=== PATIENT | male | born 1980 | race Caucasian/White ===

== ENCOUNTER 2017-06-13 22:41 | Emergency (ER) | payer MEDICARE, MEDICAID ==
[2017-06-13] MEDS ORDERED: NS 0.9% 1000 ML* 1,000 ML IV ONE (23:13)
[2017-06-13] MEDS ORDERED: Ketorolac INJ* 30 MG/ML 1 ML VIAL IV PUSH ONE (23:14)
[2017-06-13 23:33] LABS: ABS Basophils 0 10^3/ul (0-0.2); ABS Eosinophils 0.2 10^3/ul (0-0.6); ABS Monocytes 0.5 10^3/ul (0-0.8); ABS Neutrophils 4.8 10^3/ul (1.5-7.7); ABS Nucleated RBC 0 10^3/ul; Eosinophil % 2.5 % (0-6); Hematocrit 42 % (42-52); Hemoglobin 14.3 g/dl (14.0-18.0); Lymphocyte % 14.8 % (25-47); Mean Corpuscular HGB Conc 34 g/dl (31-36); Mean Corpuscular Hemoglobin 30 pg (27-31); Mean Corpuscular Volume 87 fL (80-94); Mean Platelet Volume 8 um3 (7.4-10.4); Nucleated Red Blood Cells % 0.2; Platelet Count 296 10^3/ul (150-450); Red Cell Distribution Width 13 % (10.5-15); White Blood Count 6.5 10^3/ul (3.5-10.8)
[2017-06-13 23:46] LABS: EGFR Non-African American 76.5 (>60)
[2017-06-14] MEDS ORDERED: Iohexol 300* (CONTRAST) 10 ML SDV IV ONE (01:31)
[2017-06-14 01:45] LABS: Urine Appearance Cloudy; Urine Blood Negative (Negative); Urine Color Amber; Urine Ketones Negative (Negative); Urine Protein 1+(30 mg/dL) (Negative); Urine Urobilinogen Negative (Negative)
--- NOTE | 2017-06-14 04:54 | ED ---
Gilberto Dior Angela, scribed for Sulaiman Bryant MD on 06/13/17 at 2328 . Adult Trauma - HPI Summary HPI Summary: This pt is a 37 y/o male presenting to [facility] via EMS from [facility] c/o right sided ribcage pain s/p unwitnessed fall today. 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 Pt was showering today when he sustained a fall. He denies headache. HPI is limited due to deafness. - History of Current Complaint Chief Complaint: EDChestWallPain Stated Complaint: FALL/RIB PAIN Time Seen by Provider: 06/13/17 22:54 Hx Obtained From: Patient Mechanism of Injury: Fall Ambulatory at the Scene: Yes Onset/Duration: Started Hours Ago, Traumatic, Still Present Onset of Pain: Immediate Current Severity: Moderate Pain Intensity: 5 Pain Scale Used: 0-10 Numeric Location: Other - right sided ribs Aggravating Factor(s): Movement, Palpation Alleviating Factor(s): Rest Associated Signs & Symptoms: Positive: Chest Pain - chest wall pain. Negative: Loss of Consciousness - Additional Pertinent History Primary Care Physician: [id number] - Allergy/Home Medications Allergies/Adverse Reactions: Allergies Allergy/AdvReac Type Severity Reaction Status Date / Time No Known Allergies Allergy Verified 06/13/17 22:51 PMH/Surg Hx/FS Hx/Imm Hx Endocrine/Hematology History: Denies: Hx Diabetes Cardiovascular History: Denies: Hx Congestive Heart Failure, Hx Hypertension - NOT ON MEDS,SOMETIMES AT OFFICE VISITS, Hx Pacemaker/ICD Respiratory History: Denies: Hx Asthma GI History: Reports: Other GI Disorders - enlarged gallbladder, non-surgical History: Denies: Hx Dialysis, Hx Renal Disease Musculoskeletal History: Reports: Other Musculoskeletal History - right arm Sensory History: Reports: Hx Cataracts, Hx Deafness, Hx Hearing Aid - L side Opthamlomology History: Reports: Hx Cataracts Neurological History: Reports: Hx Migraine, Other Neuro Impairments/Disorders - RECENT EEG,RECURRENT DIZZINESS. 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 Father: arthritis and ulcerative colitis. - Social History Alcohol Use: None Hx Substance Use: No Substance Use Type: Reports: None Hx Tobacco Use: No Smoking Status (MU): Unknown if Ever Smoked Review of Systems Negative: Fever Eyes: Negative ENT: Negative Musculoskeletal: Other - right sided rib cage pain Negative: Headache All Other Systems Reviewed And Are Negative: Yes Physical Exam - Summary Physical Exam Summary: VITAL SIGNS: Reviewed. GENERAL: Patient is a well-developed and nourished male who is lying comfortable in the stretcher. Patient is not in any acute respiratory distress. HEAD AND FACE: No signs of trauma. No ecchymosis, hematomas or skull depressions. No sinus tenderness. EYES: PERRLA, EOMI x 2, No injected conjunctiva, no nystagmus. EARS: Hearing grossly intact. Ear canals and tympanic membranes are within normal limits. MOUTH: Oropharynx within normal limits. NECK: Supple, trachea is midline, no adenopathy, no JVD, no carotid bruit, no c- spine tenderness, neck with full ROM. CHEST: Symmetric, tenderness on the right upper chest wall. LUNGS: Clear to auscultation bilaterally. No wheezing or crackles. CVS: Regular rate and rhythm, S1 and S2 present, no murmurs or gallops appreciated. ABDOMEN: Soft. Tenderness on the right upper quadrant. No signs of distention. No rebound no guarding, and no masses palpated. Bowel sounds are normal. EXTREMITIES: FROM in all major joints, no edema, no cyanosis or clubbing. NEURO: Alert and oriented x 3. No acute neurological deficits. Speech is normal and follows commands. SKIN: Dry and warm Triage Information Reviewed: Yes Vital Signs On Initial Exam: Initial Vitals Temp Pulse Resp BP Pulse Ox 98.6 F 81 16 131/80 94 06/13/17 22:45 06/13/17 22:45 06/13/17 22:45 06/13/17 22:45 06/13/17 22:45 Vital Signs Reviewed: Yes - Lucas Coma Scale Best Eye Response: 4 - Spontaneous Best Motor Response: 6 - Obeys Commands Best Verbal Response: 5 - Oriented Coma Scale Total: 15 Diagnostics - Vital Signs Vital Signs Temp Pulse Resp BP Pulse Ox 06/13/17 22:51 81 94 06/13/17 22:49 131/80 06/13/17 22:45 98.6 F 81 16 131/80 94 - Laboratory Result Diagrams: 06/13/17 23:22 06/13/17 23:22 Lab Statement: Any lab studies that have been ordered have been reviewed, and results considered in the medical decision making process. - CT chest/abdomen/pelvis CT CT Interpretation: No Acute Changes - IMPRESSION: No evidence of acute traumatic pathology in the chest, abdomen, or pelvis. Dr. Bryant has reviewed this radiology report. CT Interpretation Completed By: Radiologist Brain CT CT Interpretation: No Acute Changes - IMPRESSION: Extensive stable intracranial and extracranial abnormalities likely represent intracranial tubers and the sequela of prior surgery and radiotherapy. Persistent right occipital edema could represent residual mass which may involve enhanced MRI. No hemorrhage or definite acute pathology. Dr. Bryant has reviewed this radiology report. CT Interpretation Completed By: Radiologist Adult Trauma Course/Dx - Course Course Of Treatment: Pt is a 37 y/o male who presents with right sided ribcage pain s/p unwitnessed fall today. In the ED course, the pt was given IV fluids and Toradol. CT chest/abdomen/pelvis is negative. 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 Persistent right occipital edema could represent residual mass which may involve enhanced MRI. No hemorrhage or definite acute pathology. Pt will be discharged home with follow up from his PCP. - Diagnoses Provider Diagnoses: Chest wall pain Discharge - Discharge Plan Condition: Stable Disposition: HOME Patient Education Materials: Chest Wall Pain (ED) Referrals: Maxwell Ball MD [Primary Care Provider] - 3 Days Additional Instructions: Please follow up with your primary care provider. RETURN TO EMERGENCY DEPARTMENT FOR ANY NEW OR WORSENING SYMPTOMS. The documentation as recorded by the Gilberto galicia Angela accurately reflects the service I personally performed and the decisions made by Annette hill Abdul, MD.
[2017-06-14 05:04] VITALS: BP 131/75
--- NOTE | 2017-06-14 08:18 | RAD ---
INDICATION: Fall in a patient unable to provide history. COMPARISON: Most recent CT of the brain is dated February 22, 2017 TECHNIQUE: Contiguous axial sections of the brain were obtained from the skull base to the vertex without contrast. FINDINGS: Unless otherwise specified comparisons below reference the February 22, 2017 CT of the brain (there is mild symmetrical involutional change of the bilateral ventricles similar in appearance to the previous CT. There is coarse calcification seen at the bilateral basal ganglia and distributed symmetrically at the bilateral frontal lobes and involves the right greater than left medial temporal lobes. At the right occipital lobe there is a stable hyperattenuating focus measuring 12 mm with surrounding hypoattenuation in the underlying white matter. This is similar to the previous CT of the brain. There is no CT evidence of acute intracranial hemorrhage. There is no evidence for intracranial hemorrhage. There is asymmetric thickening of the right temporal and occipital calvarium. Elsewhere there is a groundglass appearance of the visualized bony structures including the maxilla and sphenoid bones. Again seen is surgical material at the inner table at the midline occipital bone. There are frothy secretions in the nasopharynx. The maxillary sinuses are hypoplastic. The sphenoid sinuses appear to be absent.. There is opacification of the right mastoid air cells and near complete opacification of the left mastoid air cells similar to the prior CT the brain. IMPRESSION: 1. Extensive chronic and postsurgical changes as described above including calcified intracranial tubers. 2. No CT evidence of acute intracranial hemorrhage or acute calvarial injury.
--- NOTE | 2017-06-14 08:19 | RAD ---
HISTORY: Fall, history of brain tumor, chest pain COMPARISONS: CT of the abdomen and pelvis dated November 21, 2011 TECHNIQUE: Multiple contiguous axial CT scans were obtained of the chest, abdomen, and pelvis. Intravenous contrast was administered; however, there is essentially no contrast opacification on the current examination.. Coronal and sagittal multiplanar reformations are submitted for review.. Oral contrast was not administered. FINDINGS: The study is limited by the essential lack of intravenous contrast. This limits evaluation of the solid organs and vasculature. Evaluation is limited by patient breathing motion artifact. CHEST NECK AND THYROID: The lower neck and thyroid are unremarkable. CHEST WALL: There is no lower cervical, axillary, or supraclavicular lymphadenopathy by size criteria. HEART AND PERICARDIUM: The heart is unremarkable. AORTA AND PULMONARY VASCULATURE: The aorta and pulmonary vasculature are normal. MEDIASTINUM: There is no mediastinal lymphadenopathy by size criteria. KAMILLA: There is no hilar lymphadenopathy by size criteria. AIRWAY AND ESOPHAGUS: The airway is unremarkable, without endobronchial filling defect. The esophagus is grossly normal. LUNG PARENCHYMA: The lungs are clear. PLEURA: No pleural abnormalities are noted. BONES AND SOFT TISSUES: No bone or soft tissue abnormalities are noted. ABDOMEN/PELVIS: LIVER: The liver is normal in shape, size, contour, and attenuation. BILE DUCTS: There is no intrahepatic or extrahepatic biliary dilatation. GALLBLADDER: The gallbladder is incompletely distended, but is grossly normal. PANCREAS: The pancreas is normal, without mass or ductal dilatation. SPLEEN: Normal in size and appearance. UPPER GI TRACT: Evaluation of the gastrointestinal tract is limited by incomplete gastric distention. Surgical clips are noted at the GE junction. SMALL BOWEL & MESENTERY: The small bowel is normal in contour, course, and caliber. There is no obstruction or dilatation. COLON: The colon is normal in contour, course, caliber. There is no pericolonic inflammatory change. ADRENALS: There is a stable 1 cm right adrenal nodule. The stability is consistent with benign nodularity. KIDNEYS: Contrast is noted within the renal collecting system. There is no appreciable hydronephrosis. BLADDER: The bladder is incompletely distended but is grossly normal. PELVIC ORGANS: The prostate gland is normal. The seminal vesicles are symmetric. AORTA: The aorta is normal. IVC: Unremarkable LYMPH NODES: There is no lymphadenopathy by size criteria. ABDOMINAL WALL: There is no evidence for abdominal wall hernia. BONES AND SOFT TISSUES: Unremarkable OTHER: None IMPRESSION: 1. EVALUATION IS LIMITED BY SUBOPTIMAL CONTRAST OPACIFICATION. THIS IS ESSENTIALLY A NONCONTRAST STUDY. 2. NO ACUTE CT PATHOLOGY OF THE VISUALIZED CHEST, ABDOMEN, OR PELVIS.
== END 2017-06-14 04:55 | disposition home or self-care (01) ==
LOC: ED 22:41
DX: R07.89 Other chest pain (principal); Z86.011 Personal history of benign neoplasm of the brain; Z85.850 Personal history of malignant neoplasm of thyroid
CPT/HCPCS: 36415; 70450; 71260; 74177; 80053; 81003; 81015; 85025; 87086; 96361; 96374; 99284; J1885

== ENCOUNTER 2017-06-18 06:17 | Emergency (ER) | payer MEDICARE, MEDICAID ==
--- NOTE | 2017-06-18 07:11 | ED ---
Ciro Dior Nikita, scribed for Remy Lovell MD on 06/18/17 at 0644 . Throat Pain/Nasal Congestion - HPI Summary HPI Summary: LEVEL 5 CAVEAT DUE TO MR This patient is a 37 year old M BIBA to ED with a chief complaint of blood in the lower conjunctiva bilaterally since awaking this morning. The caregiver rates the pain 5/10 in severity. Symptoms aggravated by nothing. Symptoms alleviated by nothing. The patient reports R-sided abdominal pain. - History of Current Complaint Chief Complaint: EDEyeProblem Hx Obtained From: Family/E Marketing Specialist Hx From Patient Unobtainable Due To: Other - LEVEL 5 CAVEAT DUE TO MR Onset/Duration: Lasting Minutes, Still Present Severity: Moderate - Allergies/Home Medications Allergies/Adverse Reactions: Allergies Allergy/AdvReac Type Severity Reaction Status Date / Time No Known Allergies Allergy Verified 06/18/17 06:20 PMH/Surg Hx/FS Hx/Imm Hx Endocrine/Hematology History: Denies: Hx Diabetes Cardiovascular History: Denies: Hx Congestive Heart Failure, Hx Hypertension - NOT ON MEDS,SOMETIMES AT OFFICE VISITS, Hx Pacemaker/ICD Respiratory History: Denies: Hx Asthma GI History: Reports: Other GI Disorders - enlarged gallbladder, non-surgical History: Denies: Hx Dialysis, Hx Renal Disease Musculoskeletal History: Reports: Other Musculoskeletal History - right arm Sensory History: Reports: Hx Cataracts, Hx Deafness, Hx Hearing Aid - L side Opthamlomology History: Reports: Hx Cataracts Neurological History: Reports: Hx Migraine, Other Neuro Impairments/Disorders - RECENT EEG,RECURRENT DIZZINESS. 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 Father: arthritis and ulcerative colitis. - Social History Alcohol Use: None Hx Substance Use: No Substance Use Type: Reports: None Hx Tobacco Use: No Smoking Status (MU): Never Smoked Tobacco Review of Systems Positive: Other - blood in the lower conjunctiva bilaterally Positive: Abdominal Pain - R-sided All Other Systems Reviewed And Are Negative: No - Comments Additional Review of Systems Comments: LEVEL 5 CAVEAT DUE TO MR Physical Exam - Summary Physical Exam Summary: Appearance: Well appearing, no pain distress Skin: warm, dry, reflects adequate perfusion Head/face: normal Eyes: EOMI, KINSEY ENT: normal, moist mucous membranes Neck: supple, non-tender, trach scar, surgical scar on the back of the neck Respiratory: CTA, breath sounds present, no crackles Cardiovascular: RRR, pulses symmetrical Abdomen: soft, RUQ pain Bowel: present Musculoskeletal: strength/ROM intact, R lower chest wall pain Neuro: normal, sensory motor intact, A&Ox3 Triage Information Reviewed: Yes Vital Signs On Initial Exam: Initial Vitals Temp Pulse Resp BP Pulse Ox 98.2 F 85 18 153/78 94 06/18/17 06:18 18 06:18 18 06:18 06/18/17 06:18 06/18/17 06:18 Vital Signs Reviewed: Yes Completion Of Physical Exam Limited Due To: Level 5 - DUE TO MR Diagnostics - Vital Signs Vital Signs Temp Pulse Resp BP Pulse Ox 06/18/17 06:18 98.2 F 85 18 153/78 94 - Laboratory Lab Statement: Any lab studies that have been ordered have been reviewed, and results considered in the medical decision making process. EENT Course/Dx - Course Course Of Treatment: RUQ pain with recent CT for same. Pending GB US. Signed out to Dr Wells at 7am. Tyree JEFFREY. No blood thinners. Appears to be related to his grunting. - Differential Diagnoses Differential Diagnoses: Other - viral illness, non-specific pain, cholecystitis , chronic abdominal pain, blood disorder - Diagnoses Provider Diagnoses: RUQ pain, Subconjunctival hemorrhage of both eyes, History of brain tumor Discharge - Discharge Plan Condition: Fair Disposition: OTHER Discharge Disposition Comment: This patient will be signed out to Dr. Wells, pending dispo, awaiting US. Referrals: Maxwell Ball MD [Primary Care Provider] - The documentation as recorded by the Ciro galicia Nikita accurately reflects the service I personally performed and the decisions made by me, Remy Lovell MD.
[2017-06-18 07:30] LABS: ABS Basophils 0 10^3/ul (0-0.2); ABS Eosinophils 0.3 10^3/ul (0-0.6); ABS Monocytes 0.5 10^3/ul (0-0.8); ABS Neutrophils 2.9 10^3/ul (1.5-7.7); ABS Nucleated RBC 0 10^3/ul; Eosinophil % 5.6 % (0-6); Hematocrit 42 % (42-52); Hemoglobin 14.2 g/dl (14.0-18.0); Lymphocyte % 21.8 % (25-47); Mean Corpuscular HGB Conc 34 g/dl (31-36); Mean Corpuscular Hemoglobin 29 pg (27-31); Mean Corpuscular Volume 86 fL (80-94); Mean Platelet Volume 7 um3 (7.4-10.4); Nucleated Red Blood Cells % 0.1; Platelet Count 312 10^3/ul (150-450); Red Blood Count 4.86 10^6/ul (4.0-5.4); Red Cell Distribution Width 13 % (10.5-15); White Blood Count 4.7 10^3/ul (3.5-10.8)
[2017-06-18 07:40] LABS: EGFR Non-African American 83.6 (>60)
[2017-06-18] MEDS ORDERED: Acetaminophen TAB* 325 MG PO ONE (08:55)
--- NOTE | 2017-06-18 09:28 | RAD ---
INDICATION: Abdominal pain COMPARISON: Chest/abdomen/pelvis June 14, 2017 TECHNIQUE: Longitudinal and transverse scans of the right upper quadrant were obtained. Doppler interrogation of the hepatic and portal venous system was performed. FINDINGS: Liver: The liver is normal in size and echogenicity. There are no focal masses. The liver measures 16.0 cm in cephalocaudal dimension. Vessels: There is normal hepatic and portal venous flow. Bile ducts: There is no evidence of intrahepatic or extrahepatic ductal dilatation. The common duct measures 0.5 cm. Gallbladder: The sonographic appearance of the gallbladder is normal. There is no evidence of cholelithiasis, thickening of the gallbladder wall, or pericholecystic fluid. Pancreas: The visualized pancreas appears normal Right kidney: The right kidney is normal in size and echogenicity. There are no masses or calculi. There is no evidence of hydronephrosis. The right kidney measures 9.2 x 5.0 x 4.6 cm. IVC and aorta: The aorta and superior vena cava appear normal. Fluid: There is no ascites. Other: None. IMPRESSION: NORMAL STUDY.
[2017-06-18] MEDS ORDERED: HYDROcodone/ACETAMIN 5-325 MG* 1 TAB PO ONE (09:58)
[2017-06-18 11:25] VITALS: BP 150/76
--- NOTE | 2017-06-18 23:48 | ED ---
Kailash Dior Natalie, scribed for Karen Wells MD on 06/18/17 at 0850 . Progress - Progress Note Progress Note: The patient is a sign-out from Dr. Lovell at shift change, pending RUQ US for RUQ pain. Júnior is the patients aide from [employer] who is here with the patient. The pt points to his right arm hurting and clenches right flank, but is tender and sore in right abd. He has a large yellow bruise on lateral right flank s/p fall a few days ago and was evaluated in [facility] [place] chest abd and pelvis from 06/13/17 was negative but limited by lack of IV contrast. He has not been vomiting. He has subconjunctival hemorrhage likely due to forced exhalation, as pt does this repeatedly in the room. In the room, the patients vitals are 153/81 BP, 66 Pulse, 95% O2Sat, and 97 HR. Appearance: Ill-appearing, moderate pain distress, Well-nourished Skin: Warm, color reflects adequate perfusion, 7cm by 4cm yellow ecchymosis at right lateral ribs Head: Normal Head/Face inspection except for eyes Eyes: Bilateral subconjunctival hemorrhage especially in the bilateral lower conjunctivae ENT: Normal inspection Neck: Supple, no nodes, no JVD. Respiratory: Lungs clear, Normal breath sounds, no respiratory distress, has forced exhalations Cardio: RRR, No murmur, pulses normal, brisk capillary refill Abdomen: Soft, tender in RUQ, right lateral ribs, no masses, no guarding, no rebound Bowel sounds: present Musculoskeletal: Strength Intact/ ROM intact. No calf tenderness. No edema. Neuro: Alert, muscle tone normal, facial symmetry, speech normal, sensory/motor intact Psychological: Normal - Results/Orders Results/Orders: Gallbladder US: Normal study. ED physician has reviewed this report. Re-Evaluation - Re-Evaluation First Eval Re-Evaluation Time: 08:50 Change: Unchanged Comment: The patient is still having RUQ pain. He will be given Tylenol for pain. Second Eval Re-Evaluation Time: 09:45 Change: Unchanged Comment: I spoke with the patient's father the patient's diagnosis because he was concerned that the hemorrhaging is from the patient's brain tumor. I assurred the father that I would give him copies of the patient's CT brain from 06/13/17 that was negative, and the CT chest/abd and pelvis from 06/13/17. Course/Dx - Course Course Of Treatment: Pt presents with bilateral subconjunctival hemorrhages and RUQ pain with recent CT for same after a fall. Pending GB US. Signed out to Dr Wells at 7am. Regarding bilat subconjunctival hemorrhages: Not on blood thinners. Appears to be related to his grunting and HTN. Previous CT from 06/13 is negative for rib fracture. He was given acetominophen and hydrocodone in the ED for right flank/RUQ pain. The patient will be discharged home with dx of right flank pain, right rib contusion, and subconjunctival hemorrhage in both eyes. He is advised to follow up with PCP in two days. Father and aid Júnior were present with pt in the ED and understand evaluation and treatment and agree with this plan. Pt is in no acute distress at the time of discharge. DISPOSITION DISCHARGE. CONDITON STABLE. - Diagnoses Provider Diagnoses: RUQ pain, Subconjunctival hemorrhage of both eyes, History of brain tumor, Rib contusion, Hypertension, poor control The documentation as recorded by the Kailash galicia Natalie accurately reflects the service I personally performed and the decisions made by me, Karen Wells MD.
== END 2017-06-18 11:22 | disposition home or self-care (01) ==
LOC: ED 06:17
DX: R10.11 Right upper quadrant pain (principal); H11.33 Conjunctival hemorrhage, bilateral; S20.219A Contusion of unspecified front wall of thorax, initial encounter; X58.XXXA Exposure to other specified factors, initial encounter; Y92.9 Unspecified place or not applicable; I10 Essential (primary) hypertension; Z85.850 Personal history of malignant neoplasm of thyroid; Z85.841 Personal history of malignant neoplasm of brain; F79 Unspecified intellectual disabilities
CPT/HCPCS: 36415; 76705; 80053; 85025; 99283; A9270-GY

== ENCOUNTER 2018-09-11 13:19 | Emergency (ER) | payer MEDICARE, MEDICAID ==
[2018-09-11 14:40] VITALS: BP 122/78
== END 2018-09-11 15:14 | disposition left against medical advice (07) ==
LOC: UCEAST 13:19
DX: Z53.21 Procedure and treatment not carried out due to patient leaving prior to being seen by health care provider (principal)

== ENCOUNTER 2018-09-12 19:44 | Inpatient (IN) | payer MEDICARE, MEDICAID ==
[2018-09-12 20:34] LABS: ABS Eosinophils 0.1 10^3/ul (0-0.6); ABS Lymphocytes 0.8 10^3/ul (1.0-4.8); ABS Monocytes 1.3 10^3/ul (0-0.8); ABS Neutrophils 13.1 10^3/ul (1.5-7.7); Eosinophil % 0.7 %; Hematocrit 42 % (42-52); Hemoglobin 13.8 g/dL (14.0-18.0); Lymphocyte % 5.3 %; Mean Corpuscular HGB Conc 33 g/dL (31-36); Mean Corpuscular Hemoglobin 29 pg (27-31); Mean Corpuscular Volume 87 fL (80-94); Mean Platelet Volume 7.6 fL (7.4-10.4); Platelet Count 308 10^3/uL (150-450); Red Blood Count 4.81 10^6 /uL (4.18-5.48); Red Cell Distribution Width 14 % (10.5-15); White Blood Count 15.4 10^3/uL (3.5-10.8)
[2018-09-12] MEDS ORDERED: Ibuprofen TAB* 600 MG PO ONE (20:42)
[2018-09-12] MEDS ORDERED: oxyCODONE TAB* 5 MG TAB PO ONE (20:47)
[2018-09-12 20:48] LABS: Albumin 3.7 g/dL (3.2-5.2); BUN/Creatinine Ratio 16.3 (8-20); C Reactive Protein 297.44 mg/L (<8.01); Calcium 8.5 mg/dL (8.6-10.3); EGFR African American 79.3 (>60); EGFR Non-African American 65.5 (>60); Globulin 3.6 g/dL (2-4); Total Bilirubin 0.5 mg/dL (0.2-1.0); Total Protein 7.3 g/dL (6.4-8.9)
[2018-09-12] MEDS ORDERED: NS 0.9% 1000 ML** 1,000 ML IV ONE ×2 (21:02→21:11)
[2018-09-12] MEDS ORDERED: Ondansetron INJ* 2 MG/ML VIAL IV ONE (21:18)
[2018-09-12] MEDS ORDERED: Morphine 4 MG/ML VIAL (1 ml) 4 MG/ML VIAL IV ONE (21:18)
[2018-09-12] MEDS ORDERED: Piperacillin/Tazobac ADVAN(*) 3.375 GM in NS 0.9% 100 ML* 100 ML IVPB ONE (21:18)
[2018-09-12] MEDS ORDERED: Ondansetron INJ* 2 MG/ML VIAL IV PRN (21:48)
--- NOTE | 2018-09-12 22:08 | ED ---
Skin Complaint - HPI Summary HPI Summary: Patient with history of MR complains of abscess to right buttock 1 week. Patient cannot answer history of present illness questions. Per caregiver, patient went to [facility] today and was started on doxycycline. Caregiver denies any other pain injury or symptoms. Medical history is hypothyroid, brain tumor, hearing deficit. - History of Current Complaint Chief Complaint: EDRashSkinAbscess Time Seen by Provider: 09/12/18 20:05 Stated Complaint: INFECTION PER EMS Hx Obtained From: Family/[employer] Onset/Duration: Started Days Ago Timing: Constant Onset Severity: Severe Current Severity: Severe Pain Intensity: 8 Pain Scale Used: 0-10 Numeric Skin Location: Discrete Aggravating Symptom(s): Touch Alleviating Symptom(s): Nothing - Additional Pertinent History Primary Care Physician: KRISTY - Allergy/Home Medications Allergies/Adverse Reactions: Allergies Allergy/AdvReac Type Severity Reaction Status Date / Time No Known Allergies Allergy Verified 06/18/17 06:20 Home Medications: Home Medications DOXYcycline CAP(*) [DOXYcycline 100MG CAP(*)] 100 mg PO BID 09/12/18 [History Confirmed 09/12/18] Escitalopram * [Lexapro *] 20 mg PO DAILY 09/12/18 [History Confirmed 09/12/18] Hydrocodone/Acetaminophen [[place] 5-325 Tablet] 1 each PO Q4H PRN MDD 6 09/12/18 [History Confirmed 09/12/18] LORazepam TAB(*) [Ativan 0.5 MG TAB (*)] 1 mg PO BEDTIME 09/12/18 [History Confirmed 09/12/18] LORazepam TAB(*) [Ativan 1 MG TAB (*)] 1 mg PO Q8H PRN 09/12/18 [History Confirmed 09/12/18] Loratadine 10 mg PO DAILY PRN 09/12/18 [History Confirmed 09/12/18] QUEtiapine TAB* [Seroquel 25 MG TAB*] 25 mg PO BEDTIME 09/12/18 [History Confirmed 09/12/18] PMH/Surg Hx/FS Hx/Imm Hx Endocrine/Hematology History: Denies: Hx Diabetes Cardiovascular History: Denies: Hx Congestive Heart Failure, Hx Hypertension - NOT ON MEDS,SOMETIMES AT OFFICE VISITS, Hx Pacemaker/ICD Respiratory History: Denies: Hx Asthma GI History: Reports: Other GI Disorders - enlarged gallbladder, non-surgical History: Denies: Hx Dialysis, Hx Renal Disease Musculoskeletal History: Reports: Other Musculoskeletal History - right arm Sensory History: Reports: Hx Cataracts, Hx Deafness, Hx Hearing Aid - L side Opthamlomology History: Reports: Hx Cataracts Neurological History: Reports: Hx Migraine, Other Neuro Impairments/Disorders - RECENT EEG,RECURRENT DIZZINESS. 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- THYROIDECTOMY-DUE TO THYROID CANCER SECONDARY TO RADIATION THERAPY Hx Radiation Therapy: Yes - Surgical History Surgery Procedure, Year, and Place: 1983- MEDULLA BLASTOMA/MENINGIOMA-MOST OF TUMOR [place]60/11 - BIOPSY OF REMAINING MENINGIOMA TUMOR-2011- [id number]- THYROIDECTOMY-DUE TO THYROID CANCER SECONDARY TO RADIATION THERAPY SINUS SURG LAP DARION FUNDOPLICATION[ End ], - Immunization History Date of Tetanus Vaccine: unk Date of Influenza Vaccine: unk Infectious Disease History: Unable to Obtain/Confirm Infectious Disease History: Denies: Traveled Outside the [place] in Last 30 Days - Family History Known Family History: Positive: Hypertension - mother, Other - Mother: breast CA. Father: arthritis and ulcerative colitis. - Social History Alcohol Use: None Hx Substance Use: No Substance Use Type: Reports: None Hx Tobacco Use: No Smoking Status (MU): Never Smoked Tobacco Review of Systems Constitutional: Negative Eyes: Negative ENT: Negative Cardiovascular: Negative Respiratory: Negative Gastrointestinal: Negative Genitourinary: Negative Musculoskeletal: Negative Skin: Other Neurological: Negative Psychological: Normal All Other Systems Reviewed And Are Negative: Yes Physical Exam - Summary Physical Exam Summary: Large 9 cm x 16 cm abscess over right gluteal muscle. No involvement of gluteal cleft or perirectal area. Area is very erythematous, swollen and warm. No evidence of apical abscess or purulent drainage. Triage Information Reviewed: Yes Vital Signs On Initial Exam: Initial Vitals Temp Pulse Resp BP Pulse Ox 100.9 F 111 18 111/73 93 09/12/18 19:48 09/12/18 19:48 09/12/18 19:48 09/12/18 19:48 09/12/18 19:48 Vital Signs Reviewed: Yes Appearance: Positive: Well-Appearing Skin: Positive: Warm Head/Face: Positive: Normal Head/Face Inspection Eyes: Positive: Normal Neck: Positive: Supple Respiratory/Lung Sounds: Positive: Clear to Auscultation Cardiovascular: Positive: Normal Abdomen Description: Positive: Nontender Musculoskeletal: Positive: Normal Neurological: Positive: Normal AVPU Assessment: Alert - Hobgood Coma Scale Best Eye Response: 4 - Spontaneous Best Motor Response: 6 - Obeys Commands Diagnostics - Vital Signs Vital Signs Temp Pulse Resp BP Pulse Ox 09/12/18 21:36 18 09/12/18 19:48 100.9 F 111 18 111/73 93 - Laboratory Lab Results: Lab Results 09/12/18 09/12/18 09/12/18 Range/Units 20:22 20:22 20:23 WBC 15.4 H (3.5-10.8) 10^3/uL RBC 4.81 (4.18-5.48) 10^6 /uL Hgb 13.8 L (14.0-18.0) g/dL Hct 42 (42-52) % MCV 87 (80-94) fL MCH 29 (27-31) pg MCHC 33 (31-36) g/dL RDW 14 (10.5-15) % Plt Count 308 (150-450) 10^3/uL MPV 7.6 (7.4-10.4) fL Neut % (Auto) 85.0 % Lymph % (Auto) 5.3 % [place] % (Auto) 8.7 % Eos % (Auto) 0.7 % Baso % (Auto) 0.3 % Absolute Neuts (auto) 13.1 H (1.5-7.7) 10^3/ul Absolute Lymphs (auto) 0.8 L (1.0-4.8) 10^3/ul Absolute Monos (auto) 1.3 H (0-0.8) 10^3/ul Absolute Eos (auto) 0.1 (0-0.6) 10^3/ul Absolute Basos (auto) 0.0 (0-0.2) 10^3/ul Absolute Nucleated RBC 0.0 10^3/ul Nucleated RBC % 0.0 Sodium 135 (135-145) mmol/L Potassium 4.0 (3.5-5.0) mmol/L Chloride 98 L (101-111) mmol/L Carbon Dioxide 30 (22-32) mmol/L Anion Gap 7 (2-11) mmol/L BUN 20 (6-24) mg/dL Creatinine 1.23 H (0.67-1.17) mg/dL Est GFR ( Amer) 79.3 (>60) Est GFR (Non-Af Amer) 65.5 (>60) BUN/Creatinine Ratio 16.3 (8-20) Glucose 107 H (70-100) mg/dL Lactic Acid 0.9 (0.5-2.0) mmol/L Calcium 8.5 L (8.6-10.3) mg/dL Total Bilirubin 0.50 (0.2-1.0) mg/dL AST 24 (13-39) U/L ALT 17 (7-52) U/L Alkaline Phosphatase 81 (34-104) U/L C-Reactive Protein 297.44 H (<8.01) mg/L Total Protein 7.3 (6.4-8.9) g/dL Albumin 3.7 (3.2-5.2) g/dL Globulin 3.6 (2-4) g/dL Albumin/Globulin Ratio 1.0 (1-3) Result Diagrams: 09/12/18 20:22 09/12/18 20:23 Lab Statement: Any lab studies that have been ordered have been reviewed, and results considered in the medical decision making process. Course/Dx - Course Course Of Treatment: Patient with history of MR complains of abscess to right buttock 1 week. Patient cannot answer history of present illness questions. Per caregiver, patient went to [facility] today and was started on doxycycline. Caregiver denies any other pain injury or symptoms. Medical history is hypothyroid, brain tumor, hearing deficit. Physical exam:Large 9 cm x 16 cm abscess over right gluteal muscle. No involvement of gluteal cleft or perirectal area. Area is very erythematous, swollen and warm. No evidence of apical abscess or purulent drainage. Patient febrile, tachycardic. WBC 8.4. CRP 297. Creatinine slightly elevated at 1.2. Patient admitted for sepsis. Discussed patient with surgery Dr. Cerrato who will consult. Patient given 2 L normal saline, started on Zosyn and morphine. - Diagnoses Provider Diagnoses: Sepsis, Abscess Discharge - Sign-Out/Discharge Documenting (check all that apply): Patient Departure Patient Received Moderate/Deep Sedation with Procedure: No - Discharge Plan Condition: Stable Disposition: ADMITTED TO [facility] Referrals: Maxwell Ball MD [Primary Care Provider] - - Billing Disposition and Condition Condition: STABLE Disposition: Admitted to [facility]
[2018-09-12] MEDS ORDERED: Acetaminophen TAB* 325 MG PO PRN (22:13)
[2018-09-12] MEDS ORDERED: guaiFENesin LIQ* 100 MG/5 ML UDC PO PRN (22:13)
[2018-09-12] MEDS ORDERED: Cetirizine* 10 MG TAB PO PRN (22:13)
[2018-09-12] MEDS ORDERED: Vancomycin per Pharmacy* NOTE FOLLOW UP SCH (23:00)
[2018-09-12] MEDS ORDERED: Zosyn per Pharmacy* NOTE FOLLOW UP SCH (23:00)
--- NOTE | 2018-09-12 23:13 | HP ---
HISTORY AND PHYSICAL: DATE OF ADMISSION: ADDENDUM: HOME MEDICATIONS: 1. Acetaminophen 325 mg p.o. q.4 hours p.r.n. 2. Escitalopram 20 mg p.o. daily. 3. Guaifenesin 10 mL p.o. q.4 hours p.r.n. 4. Hydrocodone/acetaminophen 5/325 one tab p.o. q.4 hours p.r.n. pain, MDD 6. 5. Levothyroxine 137 mcg p.o. daily. 6. Loratadine 10 mg p.o. daily. 7. Lorazepam 1 mg p.o. q.8 hours p.r.n. agitation, 0.5 mg p.o. at bedtime. 8. Magnesium hydroxide 15 mL p.o. b.i.d. p.r.n. constipation. 9. Multivitamin/minerals 1 tab p.o. daily. 10. Quetiapine 25 mg p.o. at bedtime. 11. Senna 1 tab p.o. daily. SAI POPE [id number]/[facility] #: [id number] MTDUrbano
--- NOTE | 2018-09-12 23:29 | HP ---
CC: Dr. Ball* HISTORY AND PHYSICAL: DATE OF ADMISSION: 09/12/18 PRIMARY CARE PROVIDER: Dr. Ball. ATTENDING PHYSICIAN: Dr. Wing* (dictated by SAI Michele). CHIEF COMPLAINT: 1. Right buttock abscess. 2. Fever. HISTORY OF PRESENT ILLNESS: Mr. May is a 38-year-old male with a past medical history of aggressive meningioma, hypothyroidism, traumatic brain injury leading to developmental delay, who presented to the ER today with complaints of fever, lethargy, and right buttock abscess. The patient is unable to answer questions and uses limited words, so information is obtained from his chart and from accompanying aide from [facility]. They note that the patient had a red swollen area in the right buttock that they noticed on Monday. It progressively got worse leading them to seek medical attention for Mr. May at [facility]. He was prescribed doxycycline which he started today. Later in the afternoon, the patient started to develop lethargy and was noted to be febrile despite administration of acetaminophen. At that point, they came to the ER for further evaluation. In the ER, the patient received a workup which included blood work. The hospitalist team was asked to evaluate the patient for admission. In the ER, the patient received a full workup. He was given 2 L IV fluid bolus, piperacillin and tazobactam, morphine, ibuprofen, Zofran, oxycodone. The hospitalist team was asked to evaluate the patient for admission. PAST MEDICAL HISTORY: 1. Aggressive meningioma. 2. Thyroid cancer, status post thyroidectomy secondary to radiation therapy. 3. Hypothyroidism. 4. Anxiety. 5. TBI, developmental delay. 6. Hearing impairment. 7. Vision impairment. HOME MEDICATIONS: 1. Acetaminophen 325 mg p.o. q.4 hours p.r.n. 2. Escitalopram 20 mg p.o. daily. 3. Guaifenesin 10 mL p.o. q.4 hours p.r.n. 4. Hydrocodone/acetaminophen 5/325 one tab p.o. q.4 hours p.r.n. pain, MDD 6. 5. Levothyroxine 137 mcg p.o. daily. 6. Loratadine 10 mg p.o. daily. 7. Lorazepam 1 mg p.o. q.8 hours p.r.n. agitation, 0.5 mg p.o. at bedtime. 8. Magnesium hydroxide 15 mL p.o. b.i.d. p.r.n. constipation. 9. Multivitamin/minerals 1 tab p.o. daily. 10. Quetiapine 25 mg p.o. at bedtime. 11. Senna 1 tab p.o. daily. DRUG ALLERGIES: No known drug allergies. FAMILY HISTORY: Unable to obtain family history. SOCIAL HISTORY: There is no alcohol or tobacco use. The patient lives at [facility]. His father is his healthcare proxy. REVIEW OF SYSTEMS: Unable to perform review of systems due to TBI/ developmental delay and the patient unable to answer questions. PHYSICAL EXAMINATION GENERAL: Mr. May is a well-developed, well-nourished 38-year-old white male who is lying in bed. He appears to be in mild distress. He is cooperative but unable to respond to questioning. VITAL SIGNS: Temperature 100.9 rectal, heart rate 111, respiratory rate 18, oxygen saturation 93% on room air, blood pressure 111/73. HEENT: Mucous membranes appear somewhat dry. Impaired hearing. RESPIRATORY: Symmetrical chest expansion without use of accessory muscles. Lungs are clear to auscultation. There is no rhonchi, wheezes, or rales. CARDIOVASCULAR: Tachycardic rate. Regular rhythm. S1, S2 present. No murmurs , rubs, or gallops. No JVD. ABDOMEN: Bowel sounds in all quadrants. The abdomen is soft. There is no tenderness to palpation. There is no hepatosplenomegaly. EXTREMITIES: Skin is warm and smooth bilaterally. There is no clubbing, cyanosis, or edema. Radial and pedal pulses are palpable. NEURO: The patient is awake and alert, unable to assess orientation. SKIN: There is a large hard abscess at the right upper buttock. There is a reddish purple center that measures approximately 4 to 6 cm surrounded by an area of erythema. This area has been demarcated. DIAGNOSTIC STUDIES AND LABORATORY DATA: WBC 15.4, HGB 13.8, neutrophils 13.1. Creatinine 1.23. CRP 297.44. ASSESSMENT AND PLAN: Mr. May is a 38-year-old male with a past medical history as stated above, who presented to the ER today with a right buttock abscess with surrounding erythema. He was found to be febrile and meeting sepsis criteria. The patient will be admitted for: 1. Sepsis. The patient was found to meet sepsis criteria with fever, tachycardia, and leukocytosis. He was also found to have an elevated CRP. He was treated for this with 2 L IV fluid bolus and piperacillin and tazobactam. The likely source is his skin infection on the right buttock. The patient will be admitted and continued on maintenance IV fluids at 125 cc per hour. He will also continue broad- spectrum antibiotic Zosyn. The patient will likely need a surgical consult in the morning to assess the wound further for possible I and D. We will continue treatment of pain with morphine, treatment of fever with Tylenol. 2. Hypothyroidism. Continue home medication, levothyroxine. 3. FEN: The patient will receive a regular diet. 4. DVT prophylaxis: According to the DVT risk assessment, the patient will be placed on SCDs. TIME SPENT: Approximately 60 minutes was spent on this admission, greater than half that time was spent with the patient and his caregiver obtaining history, performing physical, and reviewing the plan of care. The case has been reviewed with my attending, Dr. Wing, who is in agreement with the plan of care. SAI POPE [id number]/[facility] #: [id number]/[facility]PS #: [id number] ELLIS
[2018-09-13] MEDS: NS 0.9% 1000 ML** 1,000 ML IV SCH ×2 (01:00→20:02)
[2018-09-13] MEDS ORDERED: Vancomycin(*) 1,000 MG in NS 0.9% 250 ML* 250 ML IVPB ONE (02:00)
[2018-09-13] MEDS ORDERED: ZOSYN 3.375 GM Q8H per EXTENDED INFUSION IVPB SCH ×2 (02:00)
[2018-09-13] MEDS ORDERED: Piperacillin/Tazobac ADVAN(*) 3.375 GM in NS 0.9% 100 ML* 100 ML IVPB ONE (03:00)
[2018-09-13] MEDS ORDERED: Piperacillin/Tazobac ADVAN(*) 3.375 GM in NS 0.9% 100 ML* 100 ML IVPB SCH (04:00)
[2018-09-13] MEDS: ZOSYN 3.375 GM Q6H - Intermittant 30 min Infusion IVPB SCH ×8 (04:18→20:02)
[2018-09-13] MEDS: Levothyroxine TAB* 137 MCG TAB PO SCH (05:04)
[2018-09-13 05:36] LABS: ABS Eosinophils 0.1 10^3/ul (0-0.6); ABS Lymphocytes 0.6 10^3/ul (1.0-4.8); ABS Monocytes 1.4 10^3/ul (0-0.8); ABS Neutrophils 12.7 10^3/ul (1.5-7.7); Eosinophil % 0.7 %; Hematocrit 39 % (42-52); Lymphocyte % 4.3 %; Mean Corpuscular HGB Conc 34 g/dL (31-36); Mean Corpuscular Hemoglobin 29 pg (27-31); Mean Corpuscular Volume 87 fL (80-94); Mean Platelet Volume 7.7 fL (7.4-10.4); Nucleated Red Blood Cells % 0.1; Platelet Count 293 10^3/uL (150-450); Red Blood Count 4.47 10^6 /uL (4.18-5.48); Red Cell Distribution Width 14 % (10.5-15); White Blood Count 14.9 10^3/uL (3.5-10.8)
[2018-09-13 05:51] LABS: BUN/Creatinine Ratio 15.6 (8-20); Calcium 7.8 mg/dL (8.6-10.3); EGFR Non-African American 66.1 (>60); Potassium 3.7 mmol/L (3.5-5.0)
[2018-09-13] MEDS: Multivitamins/Minerals TAB PO SCH ×2 (09:14→16:41)
[2018-09-13] MEDS: Senna TAB PO SCH ×2 (09:14→16:41)
--- NOTE | 2018-09-13 11:29 | CONS ---
CC: Dr. Maxwell Ball; [facility] CONSULTATION REPORT: DATE OF CONSULT: 09/13/18 HISTORY OF PRESENT ILLNESS: I was contacted overnight regarding Mr. May, a 38 - year-old gentleman with history of aggressive meningioma and likely traumatic brain injury who presented with worsening swelling in his right buttock that appeared consistent with abscess. The patient was admitted to the hospitalist and started on IV antibiotics, IV fluids, and maintained n.p.o. status. When I saw the patient today, he is awake, he is oriented to person. He has no complaints. It is difficult to communicate with. PAST MEDICAL HISTORY: Reviewed. MEDICATIONS: Reviewed. He is currently on Zosyn. ALLERGIES: No known drug allergies. PHYSICAL EXAM: T-max 100.9, T-current 99.6, heart rate 123, blood pressure 147/ 74, O2 sat 92 with respiration rate of 24. Focused exam of the right buttock and hip region revealed edema and swelling in the hip when he rolls over. It extends with a fluctuance area at the medial upper portion of the right buttock consistent with abscess with skin changes. No evidence of spontaneous drainage. It is tender to touch and warm. It is not quite clear if this extends towards the pilonidal area. I did not examine the perianal area well due to the situation and patient's discomfort and inability to cooperate. DIAGNOSTIC STUDIES/LAB DATA: Labs reviewed, there is no imaging. IMPRESSION: A 38-year-old gentleman with marked disability who has a buttock abscess of unclear etiology likely pilonidal who would benefit from incision and drainage in the operating room and this is recommended. We will reach out to his family or to case workers for consent. PLAN/RECOMMENDATIONS: Plan today is incision and drainage of right buttock abscess. [id number]/[facility] #: [id number] MTDD
[2018-09-13] MEDS ORDERED: Dexamethasone TAB* 4 MG PO ONE (11:47)
[2018-09-13] MEDS ORDERED: Famotidine IV* 10 MG/ML 2 ML (20 mg) IV ONE (11:47)
[2018-09-13] MEDS ORDERED: Buffered Lidocaine 1% SYRIN* 1 ML/SYRINGE INTRADERM ONE (11:47)
[2018-09-13] MEDS ORDERED: Ondansetron INJ* 2 MG/ML VIAL ONE ×3 (11:47→13:14)
[2018-09-13] MEDS ORDERED: Naloxone* 0.4 MG/ML 1 ML VIAL IV PRN (11:48)
[2018-09-13] MEDS ORDERED: Metoclopramide IV* 5 MG/ML 2 ML VIAL IV PRN (11:48)
[2018-09-13] MEDS ORDERED: fentaNYL* 50 MCG/ML 2 ML VIAL (100 MCG VIAL) IV PRN (11:48)
[2018-09-13] MEDS ORDERED: Morphine 4 MG/ML VIAL (1 ml) 4 MG/ML VIAL IV PRN (11:48)
[2018-09-13] MEDS ORDERED: oxyCODONE/Acetamin 5/325 MG* TAB PO PRN (11:48)
[2018-09-13] MEDS ORDERED: DiMENhydriNATE IV* 50 MG/ML VIAL IV PUSH PRN (11:48)
[2018-09-13] MEDS ORDERED: Lactated Ringers 1000 ML Bag* 1,000 ML IV SCH (12:00)
--- NOTE | 2018-09-13 12:24 | PN ---
Subjective Date of Service: 09/13/18 Interval History: Patient seen and examined. Unable to obtain reliable ROS 2/2 neurologic status/ TBI. Patient is able to communicate that he is thirsty, I did explaine that the patient cannot drink at this time due to procedure and that his fther is coming soon, however it is unclear if the patient understands. He does seem somewhat distressed. Chart and labs evaluated. Objective Active Medications: Acetaminophen (Tylenol Tab*) 325 mg PO Q4H PRN PRN Reason: FEVER Last Admin: 09/13/18 04:18 Dose: 325 mg Hydrocodone Bitart/Acetaminophen ([place] 5-325 Tab*) 1 tab PO Q4H PRN PRN Reason: PAIN Cetirizine HCl (Zyrtec*) 10 mg PO DAILY PRN PRN Reason: Allergy Symptoms Dexamethasone (Decadron Tab*) 8 mg PO ONCE ONE Stop: 09/13/18 11:48 Dimenhydrinate (Dramamine Iv*) 12.5 mg IV PUSH ONCE PRN PRN Reason: NAUSEA/VOMITING Escitalopram Oxalate (Lexapro *) 20 mg PO DAILY JEFFREY Famotidine (Pepcid Iv*) 20 mg IV ONCE ONE Stop: 09/13/18 11:48 Fentanyl Citrate (Fentanyl*) 25 mcg IV Q3M PRN PRN Reason: PAIN - MODERATE Guaifenesin (Robitussin*) 10 ml PO Q4H PRN PRN Reason: cough/congesion Sodium Chloride (Ns 0.9% 1000 Ml) 1,000 mls @ 125 mls/hr IV PER RATE [facility] Last Admin: 09/13/18 01:00 Dose: 125 mls/hr Piperacillin Sod/Tazobactam (Sod 3.375 gm/ Sodium Chloride) 100 mls @ 200 mls/ hr IVPB Q6H [facility] Last Admin: 09/13/18 09:14 Dose: 200 mls/hr Vancomycin HCl 1,000 mg/ (Sodium Chloride) 250 mls @ 166.667 mls/hr IVPB Q12H [facility] Lactated Ringer's (Lactated Ringers 1000 Ml Bag*) 1,000 mls @ 125 mls/hr IV PER RATE [facility] Levothyroxine Sodium (Synthroid Tab*) 137 mcg PO DAILY@0600 [facility] Last Admin: 09/13/18 05:04 Dose: 137 mcg Lidocaine/Sodium Bicarbonate (Buffered Lidocaine 1% Syrin*) 0.2 ml INTRADERM ONCE ONE Stop: 09/13/18 11:48 Lorazepam (Ativan Tab(*)) 1 mg PO Q8H PRN PRN Reason: AGITATION Lorazepam (Ativan Tab(*)) 1 mg PO BEDTIME [facility] Magnesium Hydroxide (Milk Of Magnesia Liq*) 15 ml PO BID PRN PRN Reason: CONSTIPATION Metoclopramide HCl (Reglan Iv*) 5 mg IV ONCE PRN PRN Reason: NAUSEA/VOMITING Morphine Sulfate (Morphine Inj (Syringe))*) 2 mg IV Q4H PRN PRN Reason: PAIN - MILD Morphine Sulfate (Morphine 4 Mg/Ml Vial (1 Ml)) 3 mg IV Q5M PRN PRN Reason: PAIN Multivitamins/Minerals (Theragran/Minerals Tab*) 1 tab PO DAILY [facility] Naloxone HCl (Narcan*) 0.08 mg IV Q2M PRN PRN Reason: severe induced resp depression Ondansetron HCl (Zofran Inj*) 4 mg IV Q4H PRN PRN Reason: NAUSEA/VOMITING Ondansetron HCl (Zofran Inj*) 4 mg .SEE ORDER ONCE ONE Stop: 09/13/18 11:48 Oxycodone/Acetaminophen (Percocet 5/325 Tab*) 1 tab PO ONCE PRN PRN Reason: PAIN - MODERATE Pharmacy Consult (Vancomycin Per Pharmacy*) 1 note FOLLOW UP .VANC PER PHARMACY [facility] Pharmacy Consult (Zosyn Per Pharmacy*) 1 note FOLLOW UP .ZOSYN PER PHARMACY [facility] Pharmacy Profile Note (Vancomycin Trough Check) 1 note FOLLOW UP 1330 ONE Stop: 09/14/18 13:31 Quetiapine Fumarate (Seroquel Tab*) 25 mg PO BEDTIME [facility] Senna (Senokot Tab*) 1 tab PO DAILY [facility] Vital Signs - 8 hr 09/13/18 09/13/18 04:33 07:17 Temperature 99.6 F 98.9 F Pulse Rate 123 102 Respiratory 24 20 Rate Blood Pressure 147/74 116/73 (mmHg) O2 Sat by Pulse 92 93 Oximetry Oxygen Devices in Use Now: None Appearance: alert, mild distress, Eyes: No Scleral Icterus, PERRLA Ears/Nose/Mouth/Throat: - - dry oral mucosa Neck: NL Appearance and Movements; NL JVP, Trachea Midline Respiratory: Symmetrical Chest Expansion and Respiratory Effort, Clear to Auscultation Cardiovascular: No Edema, - - mild tachycardia, rhythm regular Extremities: No Edema, No Clubbing, Cyanosis Skin: - - rash with abscess to right buttock, erythema is not crossing margins Neurological: - - delayed/at baseline Nutrition: - - NPO for procedure Result Diagrams: 09/13/18 05:08 09/13/18 05:08 Additional Lab and Data: Lab Results 09/12/18 09/12/18 09/12/18 Range/Units 20:22 20:22 20:23 WBC 15.4 H (3.5-10.8) 10^3/uL RBC 4.81 (4.18-5.48) 10^6 /uL Hgb 13.8 L (14.0-18.0) g/dL Hct 42 (42-52) % MCV 87 (80-94) fL MCH 29 (27-31) pg MCHC 33 (31-36) g/dL RDW 14 (10.5-15) % Plt Count 308 (150-450) 10^3/uL MPV 7.6 (7.4-10.4) fL Neut % (Auto) 85.0 % Lymph % (Auto) 5.3 % [place] % (Auto) 8.7 % Eos % (Auto) 0.7 % Baso % (Auto) 0.3 % Absolute Neuts (auto) 13.1 H (1.5-7.7) 10^3/ul Absolute Lymphs (auto) 0.8 L (1.0-4.8) 10^3/ul Absolute Monos (auto) 1.3 H (0-0.8) 10^3/ul Absolute Eos (auto) 0.1 (0-0.6) 10^3/ul Absolute Basos (auto) 0.0 (0-0.2) 10^3/ul Absolute Nucleated RBC 0.0 10^3/ul Nucleated RBC % 0.0 Sodium 135 (135-145) mmol/L Potassium 4.0 (3.5-5.0) mmol/L Chloride 98 L (101-111) mmol/L Carbon Dioxide 30 (22-32) mmol/L Anion Gap 7 (2-11) mmol/L BUN 20 (6-24) mg/dL Creatinine 1.23 H (0.67-1.17) mg/dL Est GFR ( Amer) 79.3 (>60) Est GFR (Non-Af Amer) 65.5 (>60) BUN/Creatinine Ratio 16.3 (8-20) Glucose 107 H (70-100) mg/dL Lactic Acid 0.9 (0.5-2.0) mmol/L Calcium 8.5 L (8.6-10.3) mg/dL Total Bilirubin 0.50 (0.2-1.0) mg/dL AST 24 (13-39) U/L ALT 17 (7-52) U/L Alkaline Phosphatase 81 (34-104) U/L C-Reactive Protein 297.44 H (<8.01) mg/L Total Protein 7.3 (6.4-8.9) g/dL Albumin 3.7 (3.2-5.2) g/dL Globulin 3.6 (2-4) g/dL Albumin/Globulin Ratio 1.0 (1-3) Assess/Plan/Problems-Billing Assessment: This is a 38 year old male patient with history of aggressive menigioma with resulting traumatic brain injury and hypothyroidism that presented to the ED from [facility] with complaints of lethargy tachycardia and weakness, found to have abscess of the right buttocks. - Patient Problems (1) Abscess of buttock, right Code(s): L02.31 - CUTANEOUS ABSCESS OF BUTTOCK SNOMED Code(s): 87830024 Comment: - Surgery consulted, plan for I&D in OR today - Father/HC proxy notified for consent - Continue zosyn, follow intraoperative wound culture (2) SIRS (systemic inflammatory response syndrome) Current Visit: Yes Status: Acute Code(s): R65.10 - SIRS OF NON-INFECTIOUS ORIGIN W/O ACUTE ORGAN DYSFUNCTION SNOMED Code(s): 547063187 Comment: - Meeting SIRS criteria with tachycardia, elevated white count and mild fever, source is abscess of right buttock, but negative lactic acid - Blood culture NTD, does not appear toxic - Continue IVF (3) History of meningioma of the brain Code(s): Z86.011 - PERSONAL HISTORY OF BENIGN NEOPLASM OF THE BRAIN SNOMED Code(s): 400432809 Comment: - With residual TBI and cognitive deficits - Continue supportive care - [facility] and father aware of patient's current condition/status - Case management following Status and Disposition: Inpatient. Patient's renal function, H&H and electrolytes are within normal range, patient mildly tachycardic 2/2 fever only and does not present with any further chronic medical comorbid conditions. He is at his functional baseline. Patient is medically optimized for I&D procedure today. Discussed with Jon Mckeon PA-C, General Surgery.
[2018-09-13] MEDS ORDERED: Midazolam* 1 MG/ML 5 ML VIAL (5 MG) ONE (12:41)
[2018-09-13] MEDS ORDERED: fentaNYL* 50 MCG/ML 2 ML VIAL (100 MCG VIAL) ONE (12:41)
[2018-09-13] MEDS ORDERED: Atracurium* 10 MG/ML 10 ML VIAL ONE (12:41)
[2018-09-13] MEDS ORDERED: Dexamethasone IV* 4 MG/ML 1 ML (4 MG) ONE (13:02)
[2018-09-13] MEDS ORDERED: Famotidine IV* 10 MG/ML 2 ML (20 mg) ONE (13:02)
[2018-09-13] MEDS ORDERED: Dexamethasone TAB* 4 MG ONE (13:05)
[2018-09-13] MEDS ORDERED: Ondansetron ODT TAB* 4 MG ONE (13:05)
[2018-09-13] MEDS ORDERED: Bupivacaine 0.25% SDV PF* 10 ML VIAL INJ ONE (13:22)
[2018-09-13] MEDS ORDERED: Bacitracin OINTMENT* 0.5% 0.5 oz TUBE ONE (14:03)
[2018-09-13] MEDS ORDERED: Propofol* 10 MG/ML 20 ML BTL ONE (14:04)
[2018-09-13] MEDS ORDERED: Levalbuterol 1.25MG/0.5ML NEB ONE (14:58)
[2018-09-13] MEDS: Vancomycin(*) 1,000 MG in NS 0.9% 250 ML* 250 ML IVPB SCH ×2 (16:33)
[2018-09-13] MEDS: Escitalopram * 20 MG TABLET PO SCH (16:42)
[2018-09-13] MEDS: HYDROcodone/ACETAMIN 5-325 MG* 1 TAB PO PRN (19:55)
[2018-09-13] MEDS: QUEtiapine TAB* 25 MG PO SCH (19:55)
[2018-09-13] MEDS: LORazepam TAB(*) 1 MG PO SCH (19:56)
--- NOTE | 2018-09-13 20:01 | OP ---
OPERATIVE REPORT: DATE OF OPERATION: 09/13/18 DATE OF : 78 SURGEON: Pawel Collins MD [facility] HOME: Linda Ocasio NP PRE-OP DIAGNOSIS: Right buttock abscess. POST-OP DIAGNOSIS: Right buttock abscess. OPERATIVE PROCEDURE: Incision and drainage of complicated right buttock abscess. INDICATIONS: Large abscess, right buttock, questionable perianal. Risks of bleeding, infection discussed. Proxy signed consent and all questions were answered. DESCRIPTION OF PROCEDURE: In the operating room in the left lateral decubitus position, the right buttock was prepped and draped in the sterile fashion. With sedation, we were better able to evaluate the patient. It was noted to be a buttock, not perianal abscess. Time-out was performed, correct patient and correct procedure. Large fluctuant area was noted and the skin was anesthetized where local incision was made and carried to the subcutaneous tissue, a large amount of purulence was evacuated and sent for culture. loculatuions were divided. The wound was copiously irrigated with saline. Wound length 7 cm x 7cm deep. It was packed with a 2-inch Kerlix soaked in saline and antibiotic ointment was applied to the skin and covering the wound. Dry dressings covered this. He tolerated the procedure well. He was taken to Recovery in stable condition. [id number]/[facility] #: [id number] MTDD
[2018-09-14] MEDS: Morphine INJ* 2 MG/ML 1 ML SYRINGE (TWO MG - NEW SYRINGE VERSION) IV PRN ×3 (00:40→19:39)
[2018-09-14] MEDS: Vancomycin(*) 1,000 MG in NS 0.9% 250 ML* 250 ML IVPB SCH ×2 (03:00→13:31)
[2018-09-14] MEDS: Levothyroxine TAB* 137 MCG TAB PO SCH (04:51)
[2018-09-14] MEDS: ZOSYN 3.375 GM Q6H - Intermittant 30 min Infusion IVPB SCH ×8 (05:23→21:28)
--- NOTE | 2018-09-14 08:15 | PN ---
Progress Note - Progress Note Date of Service: 09/14/18 SOAP: Subjective:POD#1 S/P I&D RIGHT BUTTOCK ABSCESS [] Objective: Vital Signs Temp 97.6 F 09/14/18 06:19 Pulse 65 09/14/18 06:19 Resp 16 09/14/18 06:23 BP 102/60 09/14/18 06:23 Pulse Ox 91 09/14/18 06:19 Intake & Output 09/13/18 09/14/18 09/14/18 18:59 06:59 18:59 Intake Total 950 917 Balance 950 917 Intake: IV Fluids 650 722 LR 550 NS (0.9%) 722 Zosyn 100 IVPB 195 ABX - VANCOMYCIN 80 Zosyn 115 Oral 300 0 Other: Estimated Void Large Medium Date of Last Bowel unknown Movement # Bowel Movements 0 0 # Voids 1 0 RIGHT BUTTOCK:Erythema significantly diminished,open wound [id number] irrigated with NS,no purulent exudate;drainage sanguinous;very tender;cavity clean; repacked with NS moistened 2" sterile kerlix and covered with bulky dry 4x4's and abd pad [] Assessment:right buttock abscess adequately drained;afebrile [] Plan:daily repacking of wound as above office followup with next week,I discussed wound care with CHERELLE Chao from [facility],she was at bedside this morning await wound c&s results;antibiotics and discharge as recommended by Hospitalist service []
[2018-09-14 10:37] LABS: ABS Lymphocytes 0.7 10^3/ul (1.0-4.8); ABS Monocytes 0.7 10^3/ul (0-0.8); ABS Neutrophils 14.9 10^3/ul (1.5-7.7); Hematocrit 36 % (42-52); Hemoglobin 11.9 g/dL (14.0-18.0); Lymphocyte % 4.1 %; Mean Corpuscular HGB Conc 33 g/dL (31-36); Mean Corpuscular Hemoglobin 29 pg (27-31); Mean Corpuscular Volume 88 fL (80-94); Mean Platelet Volume 7.6 fL (7.4-10.4); Platelet Count 346 10^3/uL (150-450); Red Blood Count 4.14 10^6 /uL (4.18-5.48); Red Cell Distribution Width 14 % (10.5-15); White Blood Count 16.2 10^3/uL (3.5-10.8)
[2018-09-14 10:48] LABS: BUN/Creatinine Ratio 16.8 (8-20); Calcium 7.5 mg/dL (8.6-10.3); EGFR African American 77.8 (>60); EGFR Non-African American 64.3 (>60); Potassium 4.1 mmol/L (3.5-5.0)
[2018-09-14] MEDS: NS 0.9% 1000 ML** 1,000 ML IV SCH ×3 (10:54→21:28)
[2018-09-14] MEDS ORDERED: Vancomycin Trough Check NOTE FOLLOW UP ONE (13:30)
[2018-09-14] MEDS: Magnesium Hydroxide LIQ* 30 ML UDC PO PRN ×2 (13:48→19:39)
[2018-09-14] MEDS: HYDROcodone/ACETAMIN 5-325 MG* 1 TAB PO PRN (13:50)
[2018-09-14] MEDS: Senna TAB PO SCH (13:50)
[2018-09-14] MEDS: Escitalopram * 20 MG TABLET PO SCH (13:53)
[2018-09-14] MEDS: Multivitamins/Minerals TAB PO SCH (13:55)
[2018-09-14] MEDS: QUEtiapine TAB* 25 MG PO SCH (19:39)
[2018-09-14] MEDS: LORazepam TAB(*) 1 MG PO SCH (19:39)
--- NOTE | 2018-09-14 19:46 | PN ---
Subjective Date of Service: 09/14/18 Interval History: Patient does not answer questions appropriately. He frequently responds to all questioning with "I'm not hungry." Earlier in the day there was report from nursing that patient was lethargic but was alert at time of evaluation. Objective Active Medications: Acetaminophen (Tylenol Tab*) 325 mg PO Q4H PRN PRN Reason: FEVER Last Admin: 09/13/18 04:18 Dose: 325 mg Hydrocodone Bitart/Acetaminophen ([place] 5-325 Tab*) 1 tab PO Q4H PRN PRN Reason: PAIN Last Admin: 09/14/18 13:50 Dose: 1 tab Cetirizine HCl (Zyrtec*) 10 mg PO DAILY PRN PRN Reason: Allergy Symptoms Escitalopram Oxalate (Lexapro *) 20 mg PO DAILY [facility] Last Admin: 09/14/18 13:53 Dose: 20 mg Guaifenesin (Robitussin*) 10 ml PO Q4H PRN PRN Reason: cough/congesion Sodium Chloride (Ns 0.9% 1000 Ml) 1,000 mls @ 125 mls/hr IV PER RATE [facility] Last Admin: 09/14/18 19:37 Dose: 125 mls/hr Piperacillin Sod/Tazobactam (Sod 3.375 gm/ Sodium Chloride) 100 mls @ 200 mls/ hr IVPB Q6H [facility] Last Admin: 09/14/18 17:45 Dose: 200 mls/hr Levothyroxine Sodium (Synthroid Tab*) 137 mcg PO DAILY@0600 [facility] Last Admin: 09/14/18 04:51 Dose: 137 mcg Lorazepam (Ativan Tab(*)) 1 mg PO Q8H PRN PRN Reason: AGITATION Lorazepam (Ativan Tab(*)) 1 mg PO BEDTIME [facility] Last Admin: 09/14/18 19:39 Dose: 1 mg Magnesium Hydroxide (Milk Of Magnesia Liq*) 15 ml PO BID PRN PRN Reason: CONSTIPATION Last Admin: 09/14/18 19:39 Dose: 15 ml Morphine Sulfate (Morphine Inj (Syringe))*) 2 mg IV Q4H PRN PRN Reason: PAIN - MILD Last Admin: 09/14/18 19:39 Dose: 2 mg Multivitamins/Minerals (Theragran/Minerals Tab*) 1 tab PO DAILY [facility] Last Admin: 09/14/18 13:55 Dose: Not Given Ondansetron HCl (Zofran Inj*) 4 mg IV Q4H PRN PRN Reason: NAUSEA/VOMITING Pharmacy Consult (Zosyn Per Pharmacy*) 1 note FOLLOW UP .ZOSYN PER PHARMACY [facility] Quetiapine Fumarate (Seroquel Tab*) 25 mg PO BEDTIME [facility] Last Admin: 09/14/18 19:39 Dose: 25 mg Senna (Senokot Tab*) 1 tab PO DAILY [facility] Last Admin: 09/14/18 13:50 Dose: 1 tab Vital Signs - 8 hr 09/14/18 09/14/18 09/14/18 13:50 15:50 19:39 Respiratory 20 18 22 Rate Vital Signs 09/13/18 09/13/18 09/14/18 22:50 23:30 00:40 Temperature Pulse Rate Respiratory 18 18 Rate Blood Pressure 105/60 (mmHg) O2 Sat by Pulse Oximetry 09/14/18 09/14/18 09/14/18 02:05 03:15 03:20 Temperature 98.0 F Pulse Rate 70 Respiratory 18 16 Rate Blood Pressure 90/55 102/50 (mmHg) O2 Sat by Pulse 92 Oximetry 09/14/18 09/14/18 09/14/18 04:48 06:19 06:23 Temperature 97.6 F Pulse Rate 65 Respiratory 18 16 16 Rate Blood Pressure 92/52 102/60 (mmHg) O2 Sat by Pulse 91 Oximetry 09/14/18 09/14/18 09/14/18 08:00 13:50 15:50 Temperature Pulse Rate Respiratory 16 20 18 Rate Blood Pressure (mmHg) O2 Sat by Pulse Oximetry 09/14/18 09/14/18 09/14/18 16:00 16:17 19:39 Temperature 98.2 F Pulse Rate 81 Respiratory 18 22 Rate Blood Pressure 107/62 (mmHg) O2 Sat by Pulse 93 93 Oximetry Oxygen Devices in Use Now: None Appearance: White well developed, well nourished male, laying in hospital bed, appearing in NAD Eyes: No Scleral Icterus, PERRLA Ears/Nose/Mouth/Throat: Mucous Membranes Moist Neck: NL Appearance and Movements; NL JVP Respiratory: Symmetrical Chest Expansion and Respiratory Effort, Clear to Auscultation Cardiovascular: NL Sounds; No Murmurs; No JVD, RRR Abdominal: NL Sounds; No Tenderness; No Distention Extremities: No Edema, No Clubbing, Cyanosis Skin: - - I&D site on right buttock is covered with dry dressing, there is no tenderness to palpation, there is minimal surrounding edema and very faint erythema which is clearly removed from original borders of erythema based on skin marker Neurological: - - Patient is alert, but unable to answer questions appropriately therefore unable to assess orientation Result Diagrams: 09/14/18 09:59 09/14/18 10:05 Additional Lab and Data: Lab Results 09/12/18 09/12/18 09/12/18 Range/Units 20:22 20:22 20:23 WBC 15.4 H (3.5-10.8) 10^3/uL RBC 4.81 (4.18-5.48) 10^6 /uL Hgb 13.8 L (14.0-18.0) g/dL Hct 42 (42-52) % MCV 87 (80-94) fL MCH 29 (27-31) pg MCHC 33 (31-36) g/dL RDW 14 (10.5-15) % Plt Count 308 (150-450) 10^3/uL MPV 7.6 (7.4-10.4) fL Neut % (Auto) 85.0 % Lymph % (Auto) 5.3 % [place] % (Auto) 8.7 % Eos % (Auto) 0.7 % Baso % (Auto) 0.3 % Absolute Neuts (auto) 13.1 H (1.5-7.7) 10^3/ul Absolute Lymphs (auto) 0.8 L (1.0-4.8) 10^3/ul Absolute Monos (auto) 1.3 H (0-0.8) 10^3/ul Absolute Eos (auto) 0.1 (0-0.6) 10^3/ul Absolute Basos (auto) 0.0 (0-0.2) 10^3/ul Absolute Nucleated RBC 0.0 10^3/ul Nucleated RBC % 0.0 Sodium 135 (135-145) mmol/L Potassium 4.0 (3.5-5.0) mmol/L Chloride 98 L (101-111) mmol/L Carbon Dioxide 30 (22-32) mmol/L Anion Gap 7 (2-11) mmol/L BUN 20 (6-24) mg/dL Creatinine 1.23 H (0.67-1.17) mg/dL Est GFR ( Amer) 79.3 (>60) Est GFR (Non-Af Amer) 65.5 (>60) BUN/Creatinine Ratio 16.3 (8-20) Glucose 107 H (70-100) mg/dL Lactic Acid 0.9 (0.5-2.0) mmol/L Calcium 8.5 L (8.6-10.3) mg/dL Total Bilirubin 0.50 (0.2-1.0) mg/dL AST 24 (13-39) U/L ALT 17 (7-52) U/L Alkaline Phosphatase 81 (34-104) U/L C-Reactive Protein 297.44 H (<8.01) mg/L Total Protein 7.3 (6.4-8.9) g/dL Albumin 3.7 (3.2-5.2) g/dL Globulin 3.6 (2-4) g/dL Albumin/Globulin Ratio 1.0 (1-3) Microbiology and Other Data: Microbiology 09/13/18 13:56 Skin and Soft Tissue MRSA/MSSA (PCR - Final Perianal Mrsa Negative S.aureus Negative Gram Stain - Final Wound Culture - Preliminary No Growth Day 1 09/13/18 13:56 Anaerobic Culture - Preliminary Wound Assess/Plan/Problems-Billing Assessment: This is a 38 year old male patient with 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 - Patient Problems (1) Abscess of buttock, right Code(s): L02.31 - CUTANEOUS ABSCESS OF BUTTOCK SNOMED Code(s): 87368685 Comment: - I&D performed by Dr. Collins yesterday - no growth of wound culture yet but was MRSA negative - will d/c vanco; will continue zosyn until culture results determines otherwise (2) Sepsis Comment: - 2/2 right buttock abscess - Met SIRS criteria with tachycardia, elevated white count and mild fever - negative lactic acid - was hypotensive overnight, will continue IVF - Blood culture NTD, does not appear toxic (3) JONI (acute kidney injury) Code(s): N17.9 - ACUTE KIDNEY FAILURE, UNSPECIFIED SNOMED Code(s): 91011194 Comment: -likely prerenal related to sepsis -baseline Cr ~1.0 -has been 1.2-1.25 during this admission -discontinuing vanco will hopefully prevent further kidney injury -NS 100ml/hr and will reassess tomorrow (4) History of meningioma of the brain Code(s): Z86.011 - PERSONAL HISTORY OF BENIGN NEOPLASM OF THE BRAIN SNOMED Code(s): 942391583 Comment: - With residual TBI and cognitive deficits - Continue supportive care - [facility] and father aware of patient's current condition/status (5) Legally blind Code(s): H54.8 - LEGAL BLINDNESS, DEFINED IN [place] SNOMED Code(s): 53215281 Comment: -supportive care (6) DVT prophylaxis Code(s): Z29.9 - ENCOUNTER FOR PROPHYLACTIC MEASURES, UNSPECIFIED SNOMED Code( s): 289706561 Comment: -continue SCDs (7) Full code status Code(s): Z78.9 - OTHER SPECIFIED HEALTH STATUS SNOMED Code(s): 344463142 Status and Disposition: Inpatient. Patient requires daily or BID wound care per Dr. Collins. General surgery team educated [facility] nurse about wound care, however this nurse will not be at [facility] until Monday and did not yet train other nurses to perform wound care. Patient remains inpatient for wound care until discharge to [facility] on Monday (09/17/18). Will need wound clinic follow up.
[2018-09-15] MEDS: Morphine INJ* 2 MG/ML 1 ML SYRINGE (TWO MG - NEW SYRINGE VERSION) IV PRN ×4 (04:35→23:50)
[2018-09-15] MEDS: ZOSYN 3.375 GM Q6H - Intermittant 30 min Infusion IVPB SCH ×4 (04:36→10:55)
[2018-09-15] MEDS: NS 0.9% 1000 ML** 1,000 ML IV SCH (04:37)
[2018-09-15] MEDS: Levothyroxine TAB* 137 MCG TAB PO SCH (05:25)
[2018-09-15 06:03] LABS: ABS Lymphocytes 1.1 10^3/ul (1.0-4.8); ABS Neutrophils 12.3 10^3/ul (1.5-7.7); Eosinophil % 0.2 %; Hematocrit 34 % (42-52); Hemoglobin 11.5 g/dL (14.0-18.0); Lymphocyte % 7.6 %; Mean Corpuscular HGB Conc 34 g/dL (31-36); Mean Corpuscular Hemoglobin 30 pg (27-31); Mean Corpuscular Volume 88 fL (80-94); Mean Platelet Volume 7.4 fL (7.4-10.4); Platelet Count 336 10^3/uL (150-450); Red Cell Distribution Width 14 % (10.5-15); White Blood Count 14.5 10^3/uL (3.5-10.8)
[2018-09-15 06:16] LABS: BUN/Creatinine Ratio 17.8 (8-20); EGFR African American 71.2 (>60); EGFR Non-African American 58.8 (>60)
[2018-09-15] MEDS: Escitalopram * 20 MG TABLET PO SCH (08:23)
[2018-09-15] MEDS: Senna TAB PO SCH (08:23)
[2018-09-15] MEDS: Multivitamins/Minerals TAB PO SCH (08:23)
[2018-09-15] MEDS: LORazepam TAB(*) 1 MG PO PRN (12:23)
--- NOTE | 2018-09-15 13:34 | PN ---
Subjective Date of Service: 09/15/18 Interval History: Patient is non-verbal, patient appears intermittently in distress but cannot elucidate the cause. Seemingly improved with pain medication. Family History: Unchanged from Admission Social History: Unchanged from Admission Past Medical History: Unchanged from Admission Objective Active Medications: Acetaminophen (Tylenol Tab*) 325 mg PO Q4H PRN PRN Reason: FEVER Last Admin: 09/13/18 04:18 Dose: 325 mg Hydrocodone Bitart/Acetaminophen ([place] 5-325 Tab*) 1 tab PO Q4H PRN PRN Reason: PAIN Last Admin: 09/14/18 13:50 Dose: 1 tab Cetirizine HCl (Zyrtec*) 10 mg PO DAILY PRN PRN Reason: Allergy Symptoms Escitalopram Oxalate (Lexapro *) 20 mg PO DAILY [facility] Last Admin: 09/15/18 08:23 Dose: 20 mg Guaifenesin (Robitussin*) 10 ml PO Q4H PRN PRN Reason: cough/congesion Sodium Chloride (Ns 0.9% 1000 Ml) 1,000 mls @ 100 mls/hr IV PER RATE [facility] Last Admin: 09/15/18 04:37 Dose: 100 mls/hr Piperacillin Sod/Tazobactam (Sod 3.375 gm/ Sodium Chloride) 100 mls @ 25 mls/ hr IVPB Q8H [facility] Levothyroxine Sodium (Synthroid Tab*) 137 mcg PO DAILY@0600 [facility] Last Admin: 09/15/18 05:25 Dose: 137 mcg Lorazepam (Ativan Tab(*)) 1 mg PO Q8H PRN PRN Reason: AGITATION Last Admin: 09/15/18 12:23 Dose: 1 mg Lorazepam (Ativan Tab(*)) 1 mg PO BEDTIME [facility] Last Admin: 09/14/18 19:39 Dose: 1 mg Magnesium Hydroxide (Milk Of Magnesia Liq*) 15 ml PO BID PRN PRN Reason: CONSTIPATION Last Admin: 09/14/18 19:39 Dose: 15 ml Morphine Sulfate (Morphine Inj (Syringe))*) 2 mg IV Q4H PRN PRN Reason: PAIN - MILD Last Admin: 09/15/18 08:27 Dose: 2 mg Multivitamins/Minerals (Theragran/Minerals Tab*) 1 tab PO DAILY [facility] Last Admin: 09/15/18 08:23 Dose: 1 tab Ondansetron HCl (Zofran Inj*) 4 mg IV Q4H PRN PRN Reason: NAUSEA/VOMITING Pharmacy Consult (Zosyn Per Pharmacy*) 1 note FOLLOW UP .ZOSYN PER PHARMACY [facility] Quetiapine Fumarate (Seroquel Tab*) 25 mg PO BEDTIME [facility] Last Admin: 09/14/18 19:39 Dose: 25 mg Senna (Senokot Tab*) 1 tab PO DAILY [facility] Last Admin: 09/15/18 08:23 Dose: 1 tab Vital Signs - 8 hr 09/15/18 09/15/18 09/15/18 05:49 06:18 08:00 Temperature 97.7 F Pulse Rate 77 Respiratory 18 22 18 Rate Blood Pressure 145/69 (mmHg) O2 Sat by Pulse 94 94 Oximetry 09/15/18 09/15/18 08:27 12:23 Temperature Pulse Rate Respiratory 20 22 Rate Blood Pressure (mmHg) O2 Sat by Pulse Oximetry Oxygen Devices in Use Now: None Appearance: Patient is a 38yo male who appears older than stated age and is sitting in the bed in [facility]. Eyes: No Scleral Icterus, PERRLA Ears/Nose/Mouth/Throat: NL Teeth, Lips, Gums, Clear Oropharnyx, Mucous Membranes Moist Neck: NL Appearance and Movements; NL JVP, Trachea Midline Respiratory: Symmetrical Chest Expansion and Respiratory Effort, Clear to Auscultation Cardiovascular: NL Sounds; No Murmurs; No JVD, RRR, No Edema Abdominal: NL Sounds; No Tenderness; No Distention, No Hepatosplenomegaly Extremities: No Edema Skin: - - Buttocks incision not visualized. 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 - Patient Problems (1) Abscess of buttock, right Current Visit: Yes Status: Acute Code(s): L02.31 - CUTANEOUS ABSCESS OF BUTTOCK SNOMED Code(s): 45806809 Comment: - I&D performed by Dr. Collins - MRSA negative, Culture Grew Finegoldia Magna, possible contaminant - Continue zosyn, transition to oral antibiotics for non-MRSA cellulitis at D/ C. (2) Sepsis Current Visit: Yes Status: Acute Comment: - 2/2 right buttock abscess, Resolved - Met SIRS criteria with tachycardia, elevated white count and mild fever - negative lactic acid - Blood culture NTD, does not appear toxic (3) JONI (acute kidney injury) Current Visit: Yes Status: Acute Code(s): N17.9 - ACUTE KIDNEY FAILURE, UNSPECIFIED SNOMED Code(s): 71183484 Comment: -likely prerenal related to sepsis vs ATN from antibiotic therapy vs dehydration. - Baseline Cr ~1.0 - 1.2-1.35 during this admission - Avoid Nephrotoxins and trend (4) DVT prophylaxis Current Visit: Yes Status: Acute Code(s): Z29.9 - ENCOUNTER FOR PROPHYLACTIC MEASURES, UNSPECIFIED SNOMED Code(s): 800678270 Comment: -continue SCDs (5) Full code status Current Visit: Yes Status: Acute Code(s): Z78.9 - OTHER SPECIFIED HEALTH STATUS SNOMED Code(s): 740777640 Status and Disposition: Inpatient. Patient requires daily or BID wound care per Dr. Collins. General surgery team educated [facility] nurse about wound care, however this nurse will not be at [facility] until Monday and did not yet train other nurses to perform wound care. Patient remains inpatient for wound care until discharge to [facility] on Monday (09/17/18). Will need wound clinic follow up.
[2018-09-15] MEDS: ZOSYN 3.375 GM Q8H per EXTENDED INFUSION IVPB SCH ×4 (16:05→23:49)
[2018-09-15] MEDS: QUEtiapine TAB* 25 MG PO SCH (21:16)
[2018-09-15] MEDS: LORazepam TAB(*) 1 MG PO SCH (21:16)
[2018-09-16] MEDS: Levothyroxine TAB* 137 MCG TAB PO SCH (05:52)
[2018-09-16 06:45] LABS: Hematocrit 36 % (42-52); Hemoglobin 12.2 g/dL (14.0-18.0); Mean Corpuscular HGB Conc 34 g/dL (31-36); Mean Corpuscular Hemoglobin 29 pg (27-31); Mean Corpuscular Volume 86 fL (80-94); Mean Platelet Volume 6.8 fL (7.4-10.4); Platelet Count 357 10^3/uL (150-450); Red Blood Count 4.18 10^6 /uL (4.18-5.48); Red Cell Distribution Width 14 % (10.5-15)
[2018-09-16 07:02] LABS: BUN/Creatinine Ratio 15.7 (8-20); Calcium 7.2 mg/dL (8.6-10.3); EGFR African American 76.4 (>60); EGFR Non-African American 63.1 (>60); Magnesium 1.9 mg/dL (1.9-2.7); Potassium 3.5 mmol/L (3.5-5.0)
[2018-09-16 07:22] LABS: ABS Eosinophils 0.4 10^3/ul (0-0.6); ABS Lymphocytes 1.1 10^3/ul (1.0-4.8); ABS Neutrophils 8.6 10^3/ul (1.5-7.7); Eosinophil % 3.7 %; Lymphocyte % 9.5 %; Nucleated Red Blood Cells % 0.1
[2018-09-16] MEDS: Morphine INJ* 2 MG/ML 1 ML SYRINGE (TWO MG - NEW SYRINGE VERSION) IV PRN (08:22)
[2018-09-16] MEDS: ZOSYN 3.375 GM Q8H per EXTENDED INFUSION IVPB SCH ×4 (08:23→16:11)
[2018-09-16] MEDS: Escitalopram * 20 MG TABLET PO SCH (08:28)
[2018-09-16] MEDS: Senna TAB PO SCH (08:28)
[2018-09-16] MEDS: LORazepam TAB(*) 1 MG PO PRN (08:28)
[2018-09-16] MEDS: Multivitamins/Minerals TAB PO SCH (08:28)
--- NOTE | 2018-09-16 11:10 | PN ---
Subjective Date of Service: 09/16/18 Interval History: Patient is non-verbal again today. Patient unable to make needs known except for patient being very vocally in pain when dressing was being changed. Family History: Unchanged from Admission Social History: Unchanged from Admission Past Medical History: Unchanged from Admission Objective Active Medications: Acetaminophen (Tylenol Tab*) 325 mg PO Q4H PRN PRN Reason: FEVER Last Admin: 09/13/18 04:18 Dose: 325 mg Hydrocodone Bitart/Acetaminophen ([place] 5-325 Tab*) 1 tab PO Q4H PRN PRN Reason: PAIN Last Admin: 09/14/18 13:50 Dose: 1 tab Cetirizine HCl (Zyrtec*) 10 mg PO DAILY PRN PRN Reason: Allergy Symptoms Escitalopram Oxalate (Lexapro *) 20 mg PO DAILY [facility] Last Admin: 09/16/18 08:28 Dose: 20 mg Guaifenesin (Robitussin*) 10 ml PO Q4H PRN PRN Reason: cough/congesion Piperacillin Sod/Tazobactam (Sod 3.375 gm/ Sodium Chloride) 100 mls @ 25 mls/ hr IVPB Q8H [facility] Last Admin: 09/16/18 08:23 Dose: 25 mls/hr Levothyroxine Sodium (Synthroid Tab*) 137 mcg PO DAILY@0600 [facility] Last Admin: 09/16/18 05:52 Dose: 137 mcg Lorazepam (Ativan Tab(*)) 1 mg PO Q8H PRN PRN Reason: AGITATION Last Admin: 09/16/18 08:28 Dose: 1 mg Lorazepam (Ativan Tab(*)) 1 mg PO BEDTIME [facility] Last Admin: 09/15/18 21:16 Dose: 1 mg Magnesium Hydroxide (Milk Of Magnesia Liq*) 15 ml PO BID PRN PRN Reason: CONSTIPATION Last Admin: 09/14/18 19:39 Dose: 15 ml Morphine Sulfate (Morphine Inj (Syringe))*) 2 mg IV Q4H PRN PRN Reason: PAIN - MILD Last Admin: 09/16/18 08:22 Dose: 2 mg Multivitamins/Minerals (Theragran/Minerals Tab*) 1 tab PO DAILY [facility] Last Admin: 09/16/18 08:28 Dose: 1 tab Ondansetron HCl (Zofran Inj*) 4 mg IV Q4H PRN PRN Reason: NAUSEA/VOMITING Pharmacy Consult (Zosyn Per Pharmacy*) 1 note FOLLOW UP .ZOSYN PER PHARMACY [facility] Quetiapine Fumarate (Seroquel Tab*) 25 mg PO BEDTIME [facility] Last Admin: 09/15/18 21:16 Dose: 25 mg Senna (Senokot Tab*) 1 tab PO DAILY [facility] Last Admin: 09/16/18 08:28 Dose: 1 tab Vital Signs - 8 hr 09/16/18 09/16/18 09/16/18 03:39 08:22 08:28 Temperature 97.4 F Pulse Rate 92 Respiratory 22 24 22 Rate Blood Pressure 158/72 (mmHg) O2 Sat by Pulse 93 Oximetry Oxygen Devices in Use Now: None Appearance: Patient is a 38yo male who appears stated age and is sitting in the bed in [facility]. Eyes: No Scleral Icterus, PERRLA Ears/Nose/Mouth/Throat: NL Teeth, Lips, Gums, Clear Oropharnyx, Mucous Membranes Moist Neck: NL Appearance and Movements; NL JVP, Trachea Midline Respiratory: Symmetrical Chest Expansion and Respiratory Effort, Clear to Auscultation Cardiovascular: NL Sounds; No Murmurs; No JVD, RRR, No Edema Abdominal: NL Sounds; No Tenderness; No Distention, No Hepatosplenomegaly Lymphatic: No Cervical Adenopathy Extremities: No Edema, No Clubbing, Cyanosis Skin: No Nodules or Sclerosis, - - Right buttock incision with moderate amount of bloody drainage and redness very well receded from preivously drawn edges. Neurological: - - Alert, Non-verbal. 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 - Patient Problems (1) Abscess of buttock, right Current Visit: Yes Status: Acute Code(s): L02.31 - CUTANEOUS ABSCESS OF BUTTOCK SNOMED Code(s): 21358069 Comment: - I&D performed by Dr. Collins - MRSA negative, Culture Grew Finegoldia Magna, possible contaminant - Continue zosyn, transition to oral antibiotics for non-MRSA cellulitis at D/ C. - Improvement in erythema, continue wound care (2) Sepsis Current Visit: Yes Status: Acute Comment: - 2/2 right buttock abscess, Resolved - Met SIRS criteria with tachycardia, elevated white count and mild fever - negative lactic acid - Blood culture NTD, does not appear toxic (3) JONI (acute kidney injury) Current Visit: Yes Status: Acute Code(s): N17.9 - ACUTE KIDNEY FAILURE, UNSPECIFIED SNOMED Code(s): 15439350 Comment: - Likely prerenal related to sepsis vs ATN from antibiotic therapy vs dehydration. - Baseline Cr ~1.0 - 1.2-1.35 during this admission - Avoid Nephrotoxins and trend (4) DVT prophylaxis Current Visit: Yes Status: Acute Code(s): Z29.9 - ENCOUNTER FOR PROPHYLACTIC MEASURES, UNSPECIFIED SNOMED Code(s): 794933718 Comment: -continue SCDs (5) Full code status Current Visit: Yes Status: Acute Code(s): Z78.9 - OTHER SPECIFIED HEALTH STATUS SNOMED Code(s): 843293906 Status and Disposition: Inpatient. Patient requires daily or BID wound care per Dr. Collins. General surgery team educated [facility] nurse about wound care, however this nurse will not be at [facility] until Monday and did not yet train other nurses to perform wound care. Patient remains inpatient for wound care until discharge to [facility] on Monday (09/17/18). Will need wound clinic follow up.
[2018-09-16] MEDS: LORazepam TAB(*) 1 MG PO SCH (21:41)
[2018-09-16] MEDS: QUEtiapine TAB* 25 MG PO SCH (21:48)
[2018-09-17] MEDS: ZOSYN 3.375 GM Q8H per EXTENDED INFUSION IVPB SCH ×4 (00:34→07:52)
[2018-09-17] MEDS: LORazepam TAB(*) 1 MG PO PRN (01:32)
[2018-09-17 05:41] LABS: ABS Basophils 0.1 10^3/ul (0-0.2); ABS Eosinophils 0.5 10^3/ul (0-0.6); ABS Lymphocytes 1.1 10^3/ul (1.0-4.8); ABS Monocytes 0.7 10^3/ul (0-0.8); ABS Neutrophils 6.9 10^3/ul (1.5-7.7); Hematocrit 38 % (42-52); Hemoglobin 12.9 g/dL (14.0-18.0); Mean Corpuscular HGB Conc 34 g/dL (31-36); Mean Corpuscular Hemoglobin 29 pg (27-31); Mean Corpuscular Volume 86 fL (80-94); Mean Platelet Volume 6.6 fL (7.4-10.4); Nucleated Red Blood Cells % 0.1; Platelet Count 385 10^3/uL (150-450); Red Blood Count 4.47 10^6 /uL (4.18-5.48); Red Cell Distribution Width 14 % (10.5-15); White Blood Count 9.4 10^3/uL (3.5-10.8)
[2018-09-17 06:00] LABS: BUN/Creatinine Ratio 13.2 (8-20); Calcium 7.7 mg/dL (8.6-10.3); EGFR African American 80.8 (>60); EGFR Non-African American 66.8 (>60); Magnesium 1.9 mg/dL (1.9-2.7); Potassium 3.5 mmol/L (3.5-5.0)
[2018-09-17] MEDS: Levothyroxine TAB* 137 MCG TAB PO SCH (06:05)
[2018-09-17] MEDS: Escitalopram * 20 MG TABLET PO SCH (07:52)
[2018-09-17] MEDS: Senna TAB PO SCH (07:52)
[2018-09-17] MEDS: Multivitamins/Minerals TAB PO SCH (07:52)
[2018-09-17 08:53] VITALS: BP 144/72
--- NOTE | 2018-09-17 11:38 | PN ---
Progress Note - Progress Note Date of Service: 09/17/18 SOAP: Subjective:dressing change elicits crying out in pain [] Objective:afebrile Right buttock open wound:irrigated with NS,cavity bleeds freely,no pus;no surrounding erythema,skin intact;repacked with moistened 2"sterile kerlix and covered with bulky 4x4's and abd pad [] Assessment:POD#4 s/p I&D right buttock abscess,adequately drained;MRSA negative [] Plan:Discharge today by Hosp service to [facility] Antibiotics per Hosp Daily repacking of wound discussed with Zhanna VILLARREAL at [facility] Followup at [facility] 09/19/[address] Collins []
--- NOTE | 2018-09-17 11:56 | DS ---
CC: Dr. Maxwell Ball; Dr. Collins * DISCHARGE SUMMARY: DATE OF ADMISSION: 09/12/18 DATE OF DISCHARGE: 09/17/18 PRIMARY CARE PROVIDER: Dr. Maxwell Ball. CONSULTING GENERAL SURGEON: Dr. Collins. MY ATTENDING WHILE IN THE HOSPITAL: Dr. Kristen Dawkins.* (DICTATED BY SAI ERICKSON) PRIMARY DISCHARGE DIAGNOSIS: Right buttock abscess, likely pilonidal in origin status post incision and drainage. SECONDARY DISCHARGE DIAGNOSES: 1. History of meningioma. 2. Severe cognitive impairment. 3. Thyroid cancer status post thyroidectomy and radiation therapy. 4. Hypothyroidism. 5. Anxiety. 6. Hearing impairment. 7. Vision impairment. STUDIES DONE WHILE IN THE HOSPITAL: None. MEDICATIONS AT DISCHARGE: 1. Multivitamin 1 tab p.o. daily. 2. Synthroid 137 mcg p.o. daily. 3. Etodolac 300 mg p.o. daily. 4. Tylenol 325 mg p.o. q.4 hours as needed. 5. Guaifenesin 10 mg p.o. q.4 hours as needed. 6. Senokot 1 tab p.o. daily. 7. Milk of magnesia 15 mL p.o. b.i.d. as needed. 8. Loratadine 10 mg p.o. daily. 9. Quetiapine 25 mg p.o. at bedtime. 10. Lorazepam 1 mg p.o. q.8 hours as needed. 11. Escitalopram 20 mg p.o. daily. 12. Lorazepam 1 mg p.o. at bedtime. 13. Harleigh 5/325 one tab p.o. q.4 hours as needed. 14. Keflex 500 mg p.o. t.i.d. 15. Flagyl 500 mg p.o. t.i.d. New medications at discharge: 1. Keflex. 2. Flagyl. HOSPITAL COURSE: This is a brief summary of the patient's presentation. For more details, please see the history and physical from SAI Michele on 09/12/18. In brief, the patient is a 38-year-old male with past medical history significant for the above who presented to the emergency department with concerns for worsening redness and swelling on his right buttock for approximately 5 days before admission. The patient in the emergency department was found to have leukocytosis, fever, tachycardia. The patient was treated with broad spectrum antibiotics including vancomycin and fluid bolus. The patient was seen in consultation by Dr. Amauri Cerrato; incision and drainage was recommended. The patient underwent incision and drainage with Dr. Pawel Collins on 09/13/18. The patient's wound was packed with Kerlix, which was changed daily while in the hospital. The patient's tissue culture came back negative for MRSA by PCR, the only bacterium that grew was Finegoldia magna. The patient's white blood cell count decreased. The patient's wound appeared to be healing well. The patient was on Zosyn, which was continued during hospitalization with good response. The patient was on doxycycline before his presentation to the hospital with no improvement in his abscess. The patient was stable and amenable for discharge on 09/17/18. PHYSICAL EXAMINATION ON THE DAY OF DISCHARGE: General: The patient is a 38- year- old male who appears stated age and sitting comfortably in the bed, in no acute distress. Vital Signs: At the time of evaluation, temperature 97.5, pulse rate 80, respiratory rate 21, oxygen saturation 93%, blood pressure 140/ 58. HEENT: Head: Normocephalic, atraumatic. Sclerae anicteric. No conjunctival injection. Nasal mucosa is moist. Oral mucosa is moist. No pharyngeal erythema, discharge, or exudate. Neck: Supple, nontender. No lymphadenopathy. No carotid bruits auscultated. No JVD. Cardiac: Tachycardic. No clicks, murmurs, gallops, or rubs. Pulses 2+ in the bilateral dorsalis pedis, posterior tibialis, and radial areas. Respiratory: Clear to auscultation bilaterally. No wheezes, rales, or rhonchi. Good air exchange bilaterally. Abdomen: Soft, nontender, nondistended. Bowel sounds present. Normoactive in all 4 quadrants. No hepatosplenomegaly. No abdominal bruits auscultated. No hepatojugular reflux. Genitourinary: No suprapubic or CVA tenderness. Skin: Wound not visualized, covered by bulky dressing, not visualized today. DISCHARGE PLAN: The patient will be discharged back to [facility]. The patient will have wound packing and dressing changes daily with the nursing staff there. The patient will follow up with Dr. Collins as scheduled in the office next week and with the wound clinic. Also as scheduled, the patient should be premedicated with oxycodone and lorazepam before his dressing changes if he finds them quite distressful. The patient should return to the hospital for high fevers, recurrent abscesses, or other alarming symptoms. TIME SPENT: Approximately 60 minutes was spent on this discharge of this patient, 30 of which was spent [id number] with the patient obtaining history and physical and discussing treatment plan. SAI ERICKSON [id number]/[facility] #: [id number] ELLIS
== END 2018-09-17 13:45 | disposition home health service (06) | DRG 854 ==
LOC: ED 19:44 → MED 21:48
PROVIDERS: ADMIT Internal Medicine; ATTEND Hospitalist
PROC: 0J990ZZ Drainage of Buttock Subcutaneous Tissue and Fascia, Open Approach (ICD-10-PCS; principal; 2018-09-13 12:00)
DX: A41.9 Sepsis, unspecified organism (principal); L05.01 Pilonidal cyst with abscess; N17.9 Acute kidney failure, unspecified; G31.84 Mild cognitive impairment of uncertain or unknown etiology; I95.9 Hypotension, unspecified; E03.9 Hypothyroidism, unspecified; F41.9 Anxiety disorder, unspecified; H54.8 Legal blindness, as defined in USA; H91.90 Unspecified hearing loss, unspecified ear; B96.89 Other specified bacterial agents as the cause of diseases classified elsewhere; R62.50 Unspecified lack of expected normal physiological development in childhood; Z85.850 Personal history of malignant neoplasm of thyroid; Z87.820 Personal history of traumatic brain injury; Z92.3 Personal history of irradiation; Z79.1 Long term (current) use of non-steroidal anti-inflammatories (NSAID); Z79.899 Other long term (current) drug therapy; Z86.011 Personal history of benign neoplasm of the brain
CPT/HCPCS: 36415; 80048; 80053; 80202; 83605; 83735; 85025; 86140; 87070; 87073; 87076; 87205; 87640; 87641; 99284; A9270-GY; J1100; J2250; J2270; J2405; J2543; J2704; J3010; J3370; J3490; J8540

== ENCOUNTER 2019-04-04 14:08 | Emergency (ER) | payer MEDICARE, MEDICAID ==
--- NOTE | 2019-04-04 15:26 | ED ---
Complex/Multi-Sys Presentation - HPI Summary HPI Summary: This pt is a 39 y/o male presenting to [facility] [place] [facility] for runny nose, headache, and possible AMS. Pt has hx of medulla blastoma in 1993, meningioma in 2010 (not removed but went through a second radiation), TBI, hearing impairment, anxiety, some vision loss. Father reports pt was placed in Hospice twice in the past but recovered and now lives in [facility]. Tap And Die Maker Technician from [facility] reports pt was c/o excruciating pain yesterday, however unable to report where. Staff administered PRN pain medication with moderate relief. Today paper products printer notes pt c/o pain in his head. Tap And Die Maker Technician denies fever. Per paper products printer, pt has always had a chronic runny nose and congestion. Tap And Die Maker Technician denies cough, vomiting, diarrhea. Per paper products printer pt is "cranky" today. Per father , patient's mental status today is at baseline. Father reports pt has been intermittently incontinent of urine for a while. However, per paper products printer patient will sometimes go to the bathroom on his own. brush machine setter states patient doesn't usually need a chair to get around short distances but does need one when going out. Per paper products printer, pt did get his flu shot this year. HPI IS LIMITED DUE TO LEVEL 5 CAVEAT - pt not answering questions, hearing impairment, hx of medulloblastoma. - History Of Current Complaint Chief Complaint: EDUpperRespComplaint Time Seen by Provider: 04/04/19 14:30 Hx Obtained From: Family/Tap And Die Maker Technician - Tap And Die Maker Technician and father Hx From Patient Unobtainable Due To: Other - LEVEL 5 CAVEAT - medulloblastoma, hearing impairment Onset/Duration: Lasting Days - 1, Still Present Timing: Days - 1 Severity Currently: Mild Location: Pain At: - head Aggravating Factor(s): unknown Alleviating Factor(s): unknown Associated Signs And Symptoms: Positive: Headache Related History: Other - hx medulla blastome in 1994, meningioma in 2010 - Allergies/Home Medications Allergies/Adverse Reactions: Allergies Allergy/AdvReac Type Severity Reaction Status Date / Time No Known Allergies Allergy Verified 04/04/19 14:13 Home Medications: Home Medications Bisacodyl SUPP* [Dulcolax Supp*] 10 mg NM DAILY PRN 04/04/19 [History Confirmed 04/04/19] Calcium Carbonate CHEW TAB* [Tums*] 1,000 mg PO TID PRN 04/04/19 [History Confirmed 04/04/19] Hydrocortisone 1% CREAM(NF) [Hytone Cream 1%*] 1 applic TOPICAL QID 04/04/19 [ History Confirmed 04/04/19] LORazepam TAB(*) [Ativan 1 MG TAB (*)] 2 mg PO TID PRN MDD 4 tabs 04/04/19 [ History Confirmed 04/04/19] PMH/Surg Hx/FS Hx/Imm Hx Endocrine/Hematology History: Reports: Hx Thyroid Disease Denies: Hx Diabetes Cardiovascular History: Denies: Hx Congestive Heart Failure, Hx Hypertension - NOT ON MEDS,SOMETIMES AT OFFICE VISITS, Hx Pacemaker/ICD Respiratory History: Denies: Hx Asthma GI History: Reports: Hx Gall Bladder Disease, Hx Gastroesophageal Reflux Disease , Other GI Disorders - enlarged gallbladder. Jeremias fundoplication for GERD. History: Denies: Hx Dialysis, Hx Renal Disease Musculoskeletal History: Reports: Other Musculoskeletal History - right arm Sensory History: Reports: Hx Cataracts, Hx Deafness Denies: Hx Contacts or Glasses, Hx Hearing Aid Opthamlomology History: Reports: Hx Cataracts Denies: Hx Contacts or Glasses Neurological History: Reports: Hx Developmental Delay - r/t brain tumor, Hx Migraine, Other Neuro Impairments/Disorders - RECENT EEG,RECURRENT DIZZINESS. Brain tumor & rad tx. 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- THYROIDECTOMY-DUE TO THYROID CANCER SECONDARY TO RADIATION THERAPY Hx Radiation Therapy: Yes - Surgical History Surgical History: Yes Surgery Procedure, Year, and Place: 1983- MEDULLA BLASTOMA/MENINGIOMA-MOST OF TUMOR [id number] - BIOPSY OF REMAINING MENINGIOMA TUMOR-2011- [id number]- THYROIDECTOMY-DUE TO THYROID CANCER SECONDARY TO RADIATION THERAPY SINUS SURG LAP JEREMIAS FUNDOPLICATION[ End ], - Immunization History Date of Tetanus Vaccine: unk Date of Influenza Vaccine: unk Infectious Disease History: No Infectious Disease History: Denies: Traveled Outside the [place] in Last 30 Days - Family History Known Family History: Positive: Hypertension - mother, Other - Mother: breast CA. Father: arthritis and ulcerative colitis. - Social History Alcohol Use: None Hx Substance Use: No Substance Use Type: Reports: None Hx Tobacco Use: No Smoking Status (MU): Never Smoked Tobacco Review of Systems - ROS Summary Review of Systems Summary: HPI is unobtainable due to level 5 caveat - medulloblastoma, hearing impairment Negative: Fever Negative: Cough Negative: Vomiting, Diarrhea Positive: incontinence - chronic Positive: Headache All Other Systems Reviewed And Are Negative: No Physical Exam - Summary Physical Exam Summary: Constitutional: Well-developed, Well-nourished, Alert. (-) Distressed. Not answering questions. Skin: Warm, Dry HENT: Normocephalic; Atraumatic. Patient is deaf and does not hear naturally. Runny nose. Eyes: Conjunctiva normal. Minimal vision. Tracts very little and looks to the left and right. Neck: Musculoskeletal ROM normal neck. (-) JVD, (-) Stridor, (-) Tracheal deviation Cardio: Rhythm regular, rate normal, Heart sounds normal; Intact distal pulses; The pedal pulses are 2+ and symmetric. Radial pulses are 2+ and symmetric. Pulmonary/Chest wall: Effort normal. Clear to auscultation bilaterally. (-) Respiratory distress, (-) Wheezes, (-) Rales Abd: Soft, (-) tenderness, (-) Distension, (-) Guarding, (-) Rebound Musculoskeletal: Moving all extremities purposely. (-) Edema. No calf tenderness. No leg swelling. Neuro: Awake and alert. Neurologically at baseline. Not following commands at baseline. Psych: Mood and affect Normal Triage Information Reviewed: Yes Vital Signs On Initial Exam: Initial Vitals Temp Pulse Resp BP Pulse Ox 98.2 F 111 19 135/79 89 04/04/19 14:09 04/04/19 14:09 04/04/19 14:09 04/04/19 14:09 04/04/19 14:09 Vital Signs Reviewed: Yes Completion Of Physical Exam Limited Due To: Level 5 - due to medulloblastoma, nonverbal, hearing impairment Procedures - Sedation Patient Received Moderate/Deep Sedation with Procedure: No Diagnostics - Vital Signs Vital Signs Temp Pulse Resp BP Pulse Ox 04/04/19 14:09 98.2 F 111 19 135/79 89 - Laboratory Result Diagrams: 04/04/19 16:03 04/04/19 16:03 Lab Statement: Any lab studies that have been ordered have been reviewed, and results considered in the medical decision making process. - Radiology Chest XR Radiology Interpretation Completed By: Radiologist Summary of Radiographic Findings: IMPRESSION: Low lung volumes with bibasilar atelectasis versus infiltrate. Dr. Lara has reviewed this report. - CT Brain CT CT Interpretation Completed By: Radiologist Summary of CT Findings: IMPRESSION: 1. There is decreased density in both cerebellar hemispheres with significant mass effect possibly from recurrent tumor versus infarction. Recommend an MRI of the brain without and with contrast for further evaluation. 2. There is increased density in the superior aspect of the cerebellar hemisphere on the left side differential diagnosis would include early calcification, hemorrhage, or recurrent tumor. This can also be evaluated with MR imaging. 3. Extensive basal ganglia and cortical calcifications progressed from the prior study. Dr. Lara has reviewed this report. Complex Multi-Symp Course/Dx Assessment/Plan: Pt is a 39 y/o male, with hx of medulla blastoma, meningioma, TBI, presenting to [facility] from [facility] for runny nose, headache, and possible AMS. Chest XR shows low lung volumes with atelectasis. Discussed the case with Dr. Kebede, radiologist, who reports a lot of interval changes in the brain CT. Brain CT shows 1. There is decreased density in both cerebellar hemispheres with significant mass effect possibly from recurrent tumor versus infarction. Recommend an MRI of the brain without and with contrast for further evaluation. 2. There is increased density in the superior aspect of the cerebellar hemisphere on the left side differential diagnosis would include early calcification, hemorrhage, or recurrent tumor. This can also be evaluated with MR imaging. 3. Extensive basal ganglia and cortical calcifications progressed from the prior study. I discussed the results with the patient's father, his proxy, and patient is aware of the progression of the known disease. Chest XR shows all atelectasis. Patient is not febrile. No leukocytosis. Urinalysis is negative. I discussed with patient's father that patient's altered mental status is due to progression of the brain cancer and not due to an acute infection. I spoke with the [facility] paper products printer who is happy to keep patient the senior care. Father will contact Hospice tomorrow morning and reinstitute hospice at home. Father has a copy of the brain CT report. Patient will be discharged back to [facility]. Dx: worsening progressive known brain cancer, hx of medulloblastoma. - Diagnoses Provider Diagnoses: History of medulloblastoma - Physician Notifications Discussed Care Of Patient With: Raymon Kebede Time Discussed With Above Provider: 16:32 Instructed by Provider To: Other - Discussed the case with Dr. Kebede, radiologist, who reports a lot of interval changes in the brain CT. Discharge ED - Sign-Out/Discharge Documenting (check all that apply): Patient Departure - Discharge home - Discharge Plan Condition: Stable Disposition: HOME Patient Education Materials: Brain Tumors (DC) Referrals: Maxwell Ball MD [Primary Care Provider] - Additional Instructions: Follow up with your primary care provider in 2-3 days. RETURN TO THE ED FOR ANY WORSENING OR NEW SYMPTOMS. - Attestation Statements Document Initiated by Scribe: Yes Documenting Scribe: Garima Macias Provider For Whom Scribe is Documenting (Include Credential): Robert Lara MD Scribe Attestation: Garima Dior, scribed for Robert Lara MD on 04/04/19 at 1900. Status of Scribe Document: Ready
[2019-04-04 16:11] LABS: Urine Appearance Clear; Urine Bilirubin Negative (Negative); Urine Blood Negative (Negative); Urine Color Amber; Urine Glucose Negative (Negative); Urine Ketones Negative (Negative); Urine Nitrite Negative (Negative); Urine Protein 1+(30 mg/dL) (Negative); Urine Specific Gravity 1.025 (1.010-1.030); Urine Urobilinogen Negative (Negative)
[2019-04-04 16:15] LABS: Urine Bacteria Absent (Absent); Urine Red Blood Cell Trace(0-2/hpf) (Absent); Urine Squamous Epithelial Cell Present (Absent); Urine White Blood Cell 2+(11-20/hpf) (Absent)
[2019-04-04 16:20] LABS: ABS Eosinophils 0.2 10^3/ul (0-0.6); ABS Lymphocytes 0.8 10^3/ul (1.0-4.8); ABS Monocytes 0.9 10^3/ul (0-0.8); ABS Neutrophils 7.3 10^3/ul (1.5-7.7); Hematocrit 41 % (42-52); Hemoglobin 14.1 g/dL (14.0-18.0); Lymphocyte % 8.6 %; Mean Corpuscular HGB Conc 35 g/dL (31-36); Mean Corpuscular Hemoglobin 30 pg (27-31); Mean Corpuscular Volume 86 fL (80-94); Mean Platelet Volume 7.6 fL (7.4-10.4); Platelet Count 257 10^3/uL (150-450); Red Blood Count 4.69 10^6 /uL (4.18-5.48); Red Cell Distribution Width 14 % (10-15); White Blood Count 9.2 10^3/uL (3.5-10.8)
[2019-04-04 16:34] LABS: BUN/Creatinine Ratio 16.8 (8-20); Calcium 8.8 mg/dL (8.6-10.3); EGFR African American 81.9 (>60); EGFR Non-African American 67.7 (>60); Potassium 4.1 mmol/L (3.5-5.0)
[2019-04-04 19:14] VITALS: BP 117/79
== END 2019-04-04 19:13 | disposition home or self-care (01) ==
LOC: ED 14:08
DX: C71.6 Malignant neoplasm of cerebellum (principal); E07.9 Disorder of thyroid, unspecified; K21.9 Gastro-esophageal reflux disease without esophagitis; R62.50 Unspecified lack of expected normal physiological development in childhood; E03.9 Hypothyroidism, unspecified
CPT/HCPCS: 36415; 70450; 71046; 80048; 81003; 81015; 85025; 87086; 99283